=== PATIENT | female | born 1965 ===

== ENCOUNTER 2023-08-19 14:21 | Emergency (ER) | payer OTHER, SELFPAY ==
[2023-08-19] VITALS (7 sets, daily range): BP systolic 114–138; BP diastolic 67–89; PULSE 72–85; RESP 16–18; TEMP 36.4–36.9; O2SAT 93–98
--- NOTE | ~2023-08-19 | XR_ITS ---
EXAMINATION: XR knee RT 3V DATE: 08/19/2023 16:54 INDICATION: Right knee pain. TECHNIQUE: 3 views of right knee were obtained. COMPARISON: None. FINDINGS: Bone alignment is normal. No fracture. There is mild osteoarthritis of medial compartment c haracterized by tiny osteophytes. No knee joint effusion. IMPRESSION: 1. Mild right knee osteoarthritis. Reviewed, dictated and finalized at location E. K DRIER TENDER
--- NOTE | ~2023-08-19 | XR_ITS ---
EXAMINATION: XR knee LT 3V DATE: 08/19/2023 16:54 INDICATION: Left knee pain. TECHNIQUE: 3 views of left knee were obtained. COMPARISON: None. FINDINGS: Bone alignment is normal. No fracture. Joint spaces are normal. No knee joint effusion. IMPRESSION: 1. Normal left knee. Reviewed, dictated and finalized at location E. NISTRATIVE SUPPORT MANAGER IMPRESSION: 1. Normal left knee.
--- NOTE | 2023-08-19 16:37 | ED.GENADULT ---
HPI - General Adult General Chief complaint: Extremity Problem,Nontraumatic Stated complaint: bilateral knee pain Time Seen by Provider: 08/19/23 16:20 Source: patient Mode of arrival: ambulatory Limitations: no limitations History of Present Illness HPI narrative: This is a 58-year-old female who presents to the ED with chief complaint of acute on chronic bilateral knee pain. Reports the pain is primarily in the medial joint line of both knees. Reports pain radiates superiorly and inferiorly towards the hips and ankles. Describes the pain as feels like a saw slowing cutting through my leg. Reports she was diagnosed with fibromyalgia 2 weeks ago and started prednisone taper and is currently on Lyrica as well. Denies fevers, chills, numbness, weakness, back pain, chest pain, abdominal pain. Reports cardiac catheterization 2 days ago but has not had any lower leg swelling or edema. She is able to walk and bear weight. Related Data Allergies Allergy/AdvReac Type Severity Reaction Status Date / Time oxycodone [From Roxicet] Allergy Unknown Verified 08/19/23 16:46 Review of Systems Review of Systems: All systems as dictated in HPI Exam Narrative: GENERAL: Well-appearing, well-nourished, and in no acute distress. HEAD: Normocephalic, atraumatic. EYES: PERRLA and EOMI. ENT: Nares clear, no rhinorrhea or epistaxis. Mucous membranes moist. Oropharynx without tonsillar hypertrophy exudate or other lesions. NECK: Supple. No adenopathy or masses. CHEST: No respiratory distress. Clear to auscultation. No wheezes rales or rhonchi HEART: Regular rate and rhythm. No murmur heard. Normal peripheral pulses. ABDOMEN: Soft, nontender, nondistended, normal active bowel sounds. MSK: Mild tenderness to the bilateral medial knee joint lines. able to bear weight. Normal range of motion. No edema. No swelling, erythema or warmth. SKIN: Warm, dry, no rash. NEURO: Alert and oriented x3. No focal deficits. PSYCH: Normal mood and affect. Course Course Emergency Course: Re-evaluation: Patient received the Ativan. She feels ready to go home. She would like to follow up with her doctor. Vital Signs Vital signs: Vital Signs Pulse Rate 80 08/19/23 14:36 Respiratory Rate 18 08/19/23 14:36 Blood Pressure 134/89 08/19/23 14:36 Pulse Oximetry 96 08/19/23 14:36 Temperature 98.4 F 08/19/23 16:15 Pulse Rate 80 08/19/23 16:15 Respiratory Rate 18 08/19/23 16:15 Blood Pressure 138/80 08/19/23 16:15 Pulse Oximetry 95 08/19/23 16:15 Oxygen Delivery Room Air 08/19/23 14:42 Medical Decision Making MDM Narrative Medical decision making narrative: This is a 58-year-old female who presents to the ED with chief complaint of acute on chronic bilateral lower extremity pain. vitals are normal. Exam is overall benign. No significant edema, tenderness, knee effusion or skin change. No signs of inflammatory arthritis. No neurologic deficits. She has recent diagnosis fibromyalgia and is trying to optimize medications. Bilateral knee x-rays today show right knee OA and left knee is normal. Overall exam is consistent with more of a fibromyalgia picture. She was given Toradol here with minimal relief. Allergy to Adams. She was given 0.5 of Ativan with Moderate relief.. prescription will be written for another steroid taper for acute pain control. She already has prescription for Lyrica. Pt will be discharged in stable condition. Return precautions given and supportive measures discussed. Pt is understanding and agreeable with plan for discharge and follow-up with PCP. Vital Signs Vital Signs: Vital Signs Pulse Rate 80 08/19/23 14:36 Respiratory Rate 18 08/19/23 14:36 Blood Pressure 134/89 08/19/23 14:36 Pulse Oximetry 96 08/19/23 14:36 Temperature 98.4 F 08/19/23 16:15 Pulse Rate 80 08/19/23 16:15 Respiratory Rate 18 08/19/23 16:15 Blood Pressure
[2023-08-19] MEDS: ACETAMINOPHEN 325 MG TABLET 650 MG PO (16:44)
[2023-08-19] MEDS: KETOROLAC 30 MG/ML VIAL (*BKC) IM (17:17)
[2023-08-19] MEDS: LORazepam (*CRX) 0.5 MG TABLET PO (18:25)
== END 2023-08-19 18:49 | disposition home or self-care (01) ==
PROVIDERS: Emergency Provider Physician Assistant
DX: M25.562 Pain in left knee (principal); M25.561 Pain in right knee
CPT/HCPCS: 73562; 96372; 99284; A9270; J1885

== ENCOUNTER 2023-10-14 14:36 | Emergency (ER) | payer OTHER, SELFPAY ==
--- NOTE | ~2023-10-14 | CT_ITS ---
EXAMINATION: CT chest abdomen pelvis w con DATE: 10/14/2023 17:16 INDICATION: Abdominal distention. Shortness of breath. TECHNIQUE: Computed tomography (CT) of the chest, abdomen, and pelvis was performed with 100 mL Omnip aque 350 intravenous contrast. Automated exposure control and iterative reconstruction technique were employed. The dose-length product was 1434.79 mGy-cm. COMPARISON: None FINDINGS: CHEST CT: There is mild scarring at the lung apices. There is mild emphysema. There is smooth septal thickening in the lungs with groundglass opacities within an inferior lung predominance. No pleural effusion. T he heart size is normal. There are coronary artery calcifications. No pericardial effusion. There is mild thoracic spondylosis. ABDOMEN/PELVIS CT: The liver, gallbladder, spleen, pancreas, adrenal glands, and kidneys are normal. There are no dilate d loops of bowel. The appendix is not visualized. The bladder is distended. Aortic atherosclerosis is noted. There is no free intraperitoneal fluid. There are no pathologically enlarged lymph nodes. The re is mild lumbar spondylosis. IMPRESSION: 1. Mild emphysema. 2. Diffuse lung disease, which may be mild pulmonary edema or chronic interstitial lung disease in a pattern of nonspecific interstitial pneumonia (NSIP). Reviewed, dictated and finalized at location E. IMPRESSION: 1. Mild emphysema. 2. Diffuse lung disease, which may be mild pulmonary edema or chronic interstit ial lung disease in a pattern of nonspecific interstitial pneumonia (NSIP).
--- NOTE | ~2023-10-14 | XR_ITS ---
XR chest 2V DATE: 10/14/2023 16:10 INDICATION: Shortness of breath TECHNIQUE: PA and lateral views COMPARISON: None FINDINGS: There is mild pulmonary vascular prominence. There are bilateral Gadiel B lines which may i ndicate pulmonary interstitial edema; differential diagnosis includes pulmonary interstitial fibrosis . Mild bilateral apical capping. No pleural effusion is noted. Heart size is normal. Moderate bilateral hyperinflation. No pulmonary consolidation is noted. No hilar or mediastinal enlar gement. No pneumothorax. IMPRESSION: Bilateral Gadiel B lines and mild pulmonary vascular and pulmonary interstitial prominenc e similar differential diagnosis includes pulmonary interstitial edema and pulmonary interstitial fib rosis Moderate bilateral hyperinflation Reviewed, dictated and finalized at location A. IMPRESSION: Bilateral Gadiel B lines and mild pulmonary vascular and pulmonary interstitial prominence similar differential diagnosis includes pulmonary inter stitial edema and pulmonary interstitial fibrosis Moderate bilateral hyperinflation
[2023-10-14 14:42] VITALS: BP 139/88; PULSE 75; RESP 20; TEMP 36.4; O2SAT 98
[2023-10-14 15:39] VITALS: BP 115/76; PULSE 78; PULSE 79; RESP 16; O2SAT 99
[2023-10-14 15:41] VITALS: O2SAT 98
--- NOTE | 2023-10-14 15:42 | ECG_ITS ---
SEE SCANNED COPY FOR CONFIRMED REPORT MTDD
[2023-10-14 15:55] LABS: Basophils Absolute Auto 0.1 K/mm3 (0.0-0.1); Basophils Percent Auto 0.8 % (0.2-1.2); Eosinophils Absolute Auto 0.1 K/mm3 (0-0.3); Eosinophils Percent Auto 1.7 % (0-4.4); Hematocrit 43.2 % (37.0-47.0); Hemoglobin 14.4 g/dL (12.0-15.0); Immature Granulocyte Absolute 0.01 K/mm3 (0.00-0.031); Immature Granulocyte Percent A 0.2 % (0-0.5); Lymphocytes Absolute Auto 2.56 K/mm3 (0.9-3.2); Lymphocytes Percent Auto 39.4 % (18.3-44.2); Mean Corpuscular HGB Conc 33.3 g/dl (32-36); Mean Corpuscular Hemoglobin 32.4 pg (26-34); Mean Corpuscular Volume 97.1 fl (80-100); Mean Platelet Volume 10.4 fl (7.4-10.4); Monocytes Absolute Auto 0.4 K/mm3 (0.1-0.6); Monocytes Percent Auto 5.8 % (2.6-8.5); Neutrophils Absolute Auto 3.4 K/mm3 (1.3-6.7); Neutrophils Percent Auto 52.1 % (45.5-73.1); Platelet Count Result 178 k/mm3 (150-375); Red Blood Count 4.45 M/mm3 (4.2-5.4); Red Cell Distribution Width 12.4 % (11.5-14.5); White Blood Count 6.5 K/mm3 (4.5-10.0)
--- NOTE | 2023-10-14 15:55 | ED.WEAKNESS ---
HPI - Weakness General Chief complaint: Weakness Stated complaint: generalized swelling Time Seen by Provider: 10/14/23 15:55 Source: patient Mode of arrival: ambulatory Limitations: no limitations History of Present Illness HPI Narrative: 58 YEARS OLD WHITE FEMALE DROVE HERSELF TO THE EMERGENCY ROOM COMPLAINING OF SWOLLEN ABDOMEN AND FEET 4 WEEKS. PATIENT REPORT HAVING HISTORY OF COVID INFECTION 1 YEAR AGO AND HAS BEEN NOT FEELING WELL SINCE. WAS SEEN HER FAMILY PHYSICIAN 2 DAYS AGO, SCHEDULED FOR INTERMEDIATE ACCOUNTANT, SCHEDULED FOR GI, SCHEDULED FOR A LEFT KNEE STEROID INJECTION. PATIENT HAD CARDIAC CATHETERIZATION AUGUST 2023, 2 DAYS LATER CAME BACK TO THE EMERGENCY ROOM FOR POSSIBLE COMPLICATION OF THE CARDIAC CATHETERIZATION AND WAS DISCHARGED HOME AT THAT TIME. PLEASE LOOK AT THE OLD RECORD Related Data Allergies Allergy/AdvReac Type Severity Reaction Status Date / Time isosorbide Allergy Unknown Verified 10/14/23 15:35 oxycodone [From Roxicet] Allergy Unknown Verified 10/14/23 15:35 Review of Systems Review of Systems: All systems reviewed & are unremarkable except as noted in HPI and below Exam Narrative: GENERAL APPEARANCE: WELL-DEVELOPED, WELL-NOURISHED SKIN: NORMAL COLOR HEAD: NORMOCEPHALIC, NONTRAUMATIC EYES: CLEAR CONJUNCTIVA ENT: OROPHARYNX NORMAL, EARS NORMAL, NOSE NORMAL NECK: SUPPLE, NONTENDER CHEST AND RESPIRATORY: AIRWAY PATENT, NO RESPIRATORY DISTRESS, NO ACCESSORY MUSCLE USE HEART: REGULAR RATE/RHYTHM ABDOMEN: SOFT, NONTENDER, NO ORGANOMEGALY, QUIET BOWEL SOUNDS, DISTENDED VASCULAR: NORMAL PERIPHERAL PULSES, NORMAL CAPILLARY REFILL. MUSCULOSKELETAL: NORMAL RANGE OF MOTION, NONTENDER BACK NEUROLOGIC: ALERT AND ORIENTED ?3, SUPERVISOR POLE YARD IS NORMAL TESTED, NO GROSS MOTOR DEFICIT Course Vital Signs Vital signs: Vital Signs Temperature 36.4 C L 10/14/23 14:42 Pulse Rate 75 10/14/23 14:42 Respiratory Rate 20 10/14/23 14:42 Blood Pressure 139/88 10/14/23 14:42 Pulse Oximetry 98 10/14/23 14:42 Oxygen Delivery Room Air 10/14/23 14:42 Temperature 36.4 C L 10/14/23 14:42 Pulse Rate 81 10/14/23 18:36 Respiratory Rate 19 10/14/23 18:36 Blood Pressure 134/80 10/14/23 18:36 Pulse Oximetry 97 10/14/23 18:36 Oxygen Delivery Room Air 10/14/23 15:41 MDM - Weakness MDM Narrative Medical decision making narrative: PATIENT PRESENTS WITH MULTIPLE SYMPTOMS DIFFERENTIAL DIAGNOSIS INCLUDE ANXIETY, DEPRESSION, LONG COVID, ELECTROLYTE IMBALANCE, CHF, URINARY TRACT INFECTION, INTRA-ABDOMINAL PATHOLOGY. BLOOD WORKUP TODAY SHOWED NO SIGNIFICANT ABNORMALITY, CHEST X-RAY AND CT SCAN OF THE CHEST, ABDOMEN AND PELVIS SHOWED POSSIBLE PULMONARY EDEMA,/NORMAL BNP, INTERSTITIAL LUNG DISEASE. PATIENT DOES NOT HAVE ANY TROUBLE BREATHING OR CHEST PAIN. COMPLICATIONS SECONDARY TO COVID INFECTION IS A POSSIBILITY. Differential Diagnosis Differential diagnosis: Likely other ( ABOVE) Medical Records Attestation: I reviewed the patient's medical records. Lab Data Attestation: I reviewed the patient's lab results. 10/14/23 15:49 10/14/23 15:49 Labs: Lab Results 10/14/23 10/14/23 Range/Units 15:49 18:30 WBC 6.5 (4.5-10.0) K/mm3 RBC 4.45 (4.2-5.4) M/mm3 Hgb 14.4 (12.0-15.0) g/dL Hct 43.2 (37.0-47.0) % MCV 97.1 (80-100) fl MCH 32.4 (26-34) pg MCHC 33.3 (32-36) g/dl RDW 12.4 (11.5-14.5) % Plt Count 178 (150-375) k/mm3 MPV 10.4 (7.4-10.4) fl Immature Gran % (Auto) 0.2 (0-0.5) % Neut % (Auto) 52.1 (45.5-73.1) % Lymph % (Auto) 39.4 (18.3-44.2) % Baxter % (Auto) 5.8 (2.6-8.5) % Eos % (Auto) 1.7 (0-4.4) % Baso % (Auto) 0.8
[2023-10-14 16:06] LABS: Alanine Aminotransferase 18 U/L (6-35); Alkaline Phosphatase 103 U/L (38-126); Anion Gap 6 mmol/L (4-12); Aspartate Amino Transferase 22 U/L (14-36); Bilirubin,Total 0.5 mg/dL (0.2-1.3); Blood Urea Nitrogen 8 mg/dL (7-17); Carbon Dioxide 25 mmol/L (22-30); Chloride 110 mmol/L (98-107); Estimated CRCL calculation 94 ml/min; Estimated Glomerular Filt Rate > 60; Glucose 107 mg/dL (65-110); Potassium 3.5 mmol/L (3.4-5.0); Sodium 141 mmol/L (137-145)
[2023-10-14 16:14] LABS: Prothrombin Time 13.4 Seconds (11.1-14.7)
[2023-10-14 16:15] LABS: Partial Thromboplastin Time 29.2 Seconds (22.3-36.8)
[2023-10-14 16:23] LABS: NT Pro B Type Natriuretic Pept 81 pg/mL (19.9-100); Troponin I < 0.012 ng/mL (0.000-0.034)
[2023-10-14 16:36] LABS: Alveolar/Arterial O2 Gradient 38.1 mmHg; Base Excess ABG 0.8 mEq/l (+/-2.0); Fractional Inspired Oxygen 21 %; HCO3 ABG 23.7 mEq/l (22.0-26.0); Oxygen Content ABG 17.8 %vol (16.0-22.0); Oxygen Saturation ABG 95.6 % (95.0-100.0); PO2 ABG 72.1 mmHg (80.0-100.0); PO2 FiO2 Ratio Arterial Blood 3.43 %; Total Hemoglobin 14.8 g/dL (12.0-18.0); pH ABG 7.474 (7.350-7.450)
[2023-10-14 16:38] LABS: Device ROOM AIR; Modified Allen's Test Pass; Oxyhemoglobin 85.2 % THb (90.0-100.0); Site Drawn LEFT RADIAL
[2023-10-14 18:36] VITALS: BP 134/80; PULSE 81; RESP 19; O2SAT 97
[2023-10-14 18:40] LABS: Appearance Urine Clear (Clear); Bilirubin Urine Negative (Negative); Blood Urine Negative (Negative); Color Urine Yellow (Yellow); Glucose Urine UA Negative (Negative); Ketones Urine Negative (Negative); Leukocyte Esterase Ur Negative LEU/UL (Negative); Nitrate Urine Negative (Negative); Protein Urine Negative (Negative); Specific Grav Ur 1.066 (1.001-1.035); Urobilinogen Urine 0.2 mg/dL (<2.0); pH Urine 5.5 (5.0-9.0)
[2023-10-14 18:41] LABS: Add Urine Microscopic? NO
[2023-10-14 19:10] VITALS: BP 122/77; PULSE 92; RESP 23; TEMP 36.4; O2SAT 97
== END 2023-10-14 19:21 | disposition home or self-care (01) ==
PROVIDERS: Emergency Provider Emergency Medicine; PCP Internal Medicine
DX: R53.1 Weakness (principal); J84.9 Interstitial pulmonary disease, unspecified; Z86.16 Personal history of COVID-19
CPT/HCPCS: 36415; 36600; 71046; 71260; 74177; 80053; 81003; 82805; 83735; 83880; 84484; 85025; 85610; 85730; 93005; 99284; Q9967

== ENCOUNTER 2024-05-07 12:51 | Outpatient (CLI) | payer OTHER, SELFPAY ==
--- NOTE | 2024-05-07 14:00 | NEURO_ITS ---
Impression: # Complains of left foot turning in while walking. 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 # Abnormal Needle/EMG exam. # Findings suggestive of left peroneal nerve dysfunction above the fibular head. Nerve Conduction Studies Anti Sensory Summary Table Stim Site NR Peak (ms) P-T Amp (?V) Site1 Site2 Delta-P (ms) Dist (cm) Yvan (m/s) Left Sup Fibular Anti Sensory (Ant Lat Mall) 14 cm 3.4 16.5 14 cm Ant Lat Mall 3.4 16.0 47 Left Sural Anti Sensory (Lat Mall) Calf 3.8 10.6 Calf Lat Mall 3.8 16.0 42 Motor Summary Table Stim Site NR Onset (ms) O-P Amp (mV) Site1 Site2 Delta-0 (ms) Dist (cm) Yvan (m/s) Left Peroneal Motor (Vastus Med) Ankle 3.8 0.9 Popit Ankle 8.2 39.0 48 Popit 12.0 0.6 B Fib Ankle 5.9 31.0 53 B Fib 9.7 0.6 Left Tibial Motor (Abd Zarate Brev) Ankle 4.0 6.7 Knee Ankle 8.7 40.0 46 Knee 12.7 2.5 F Wave Studies NR F-Lat (ms) L-R F-Lat (ms) Left Peroneal (Mrkrs) (EDB) 53.10 Left Tibial (Mrkrs) (Abd Hallucis) 53.71 EMG Side Muscle Nerve Root Ins Act Fibs Amp Dur Recrt Comment Left AntTibialis Dp Br Fibular L4-5 Nml Nml Nml Nml Nml Left Gastroc Tibial S1-2 Nml Nml Nml Nml Nml Left Fibularis Long Sup Br Fibular L5-S1 Nml Nml Nml Nml Nml Left Flex Dig Long Tibial L5-S2 Nml Nml Nml Nml Nml Left Ext Dig Brev Dp Br Fibular L5, S1 Nml Nml Decr >12ms +2 Left QuadratusFem QuadFemoris L4-5, S1 Nml Nml Nml Nml Nml MTDD
== END 2024-05-07 12:52 | disposition home or self-care (01) ==
LOC: ANHNEURO 12:52
PROVIDERS: PCP Internal Medicine; Visit Provider Podiatrist Foot & Ankle Surgery
DX: M21.6X2 Other acquired deformities of left foot (principal); G57.30 Lesion of lateral popliteal nerve, unspecified lower limb
CPT/HCPCS: 95886; 95908

== ENCOUNTER 2024-07-24 04:58 | Emergency (ER) | payer OTHER, SELFPAY ==
--- NOTE | ~2024-07-24 | XR_ITS ---
EXAMINATION: XR chest 1V portable DATE: 07/24/2024 12:16 INDICATION: Shortness of breath TECHNIQUE: AP view of the chest was obtained. COMPARISON: Chest radiograph and CT dated 10/14/2023 FINDINGS: Again seen is a mild increased interstitial pattern in the bilateral lower lung zones which could rep resent mild pulmonary edema or chronic interstitial lung disease.. No pleural effusion or pneumothora x. The cardiomediastinal silhouette is normal. Visualized bones and soft tissues are unremarkable. IMPRESSION: 1. Mild increased interstitial pattern in the bilateral lower lungs due to mild pulmonary edema or ch ronic interstitial lung disease. Reviewed, dictated and finalized at location A. STMENT ANALYST IMPRESSION: 1. Mild increased interstitial pattern in the bilateral lower lungs due to mild pulmonary edema or chronic interstitial lung disease.
--- OUTSIDE RECORDS SUMMARY | 2024-07-24 05:01 | XMS_ITS | Referral Summary ---
Author Organization [facility] [place] [address] Address [address] [place] [address] Care Team Providers Care Drinking Water Technician Name Role Phone Renato Rdz MD Primary Care Provider +1- [phone] Encounters Date Type Department Care Team Description 07/12/2024 Telephone [facility] Gastroenterology at [address] [place] [address] Amalia Little LPN 07/04/2024 Orders Only [facility] [address] [facility] 8th [place] [address] [place] [address] Surjit Up MD 06/29/2024 Orders Only [facility] [address] [facility] 8th [place] [address] [place] [address] Surjit Up MD 06/29/2024 1:30 PM MANAGER RISK MANAGEMENT - 06/29/2024 11:59 PM MANAGER RISK MANAGEMENT Hospital Encounter [facility] [address] [place] [address] Surjit Up MD ILD (interstitial lung disease) (CMS/HCC) (HCC) Discharge Disposition: Discharge to home or self care 06/29/2024 3:00 PM MANAGER RISK MANAGEMENT Office Visit [facility] [address] [facility] 8th [place] [address] [place] [address] Surjit Up MD Coronary artery calcification seen on CT scan (Primary Dx); Major depressive disorder in partial remission, unspecified whether recurrent (HCC); Tobacco abuse; Chronic fatigue; Other emphysema (HCC) from Last 3 Months Allergies Active Allergy Reactions Criticality Noted Date Comments Isosorbide Mononitrate Headache Low 07/12/2023 Severe/migraines Oxycodone-Acetaminophen Unknown 04/06/2023 Medications aspirin (Adult Low Dose Aspirin) 81 mg enteric coated tablet Take 1 tablet (81 mg total) by mouth daily 3 Active atorvastatin (LIPITOR) 40 mg tablet Take 1 tablet (40 mg total) by mouth daily 30 tablet 11 3 Active albuterol HFA (PROVENTIL HFA,VENTOLIN HFA,PROAIR HFA) 90 mcg/actuation inhaler Inhale 2 puffs every 4 (four) hours as needed for wheezing Active ibuprofen (ADVIL,MOTRIN) 600 mg tablet TAKE 1 TABLET 3 TIMES A DAY BY MOUTH WITH MEALS FOR 30 DAYS. 4 Active pregabalin (LYRICA) 50 mg capsule Take 1 capsule (50 mg total) by mouth daily Active buPROPion XL (WELLBUTRIN XL) 300 mg 24 hr tablet Take 1 tablet (300 mg total) by mouth daily Active OneTouch Verio test strips strip USE 1 STRIP EVERY DAY NEEDED FOR 100 DA[address] (CYMBALTA) 30 mg capsule TAKE 1 CAPSULE BY MOUTH AT BEDTIME TAKE WITH 60MG TO EQUAL 90MG DAILY Active metFORMIN XR (GLUCOPHAGE XR) 500 mg 24 hr tablet TAKE 1 TABLET BY MOUTH EVERY DAY AT DINNER FOR 30 DAYS Active ofloxacin (OCUFLOX) 0.3 % ophthalmic solution PLEASE SEE ATTACHED FOR DETAILED DIRECTIONS Active ascorbic acid with alejandra hips 500 mg tablet Take 1 tablet/chew tab (500 mg total) by mouth daily 4 Active cholecalcifero l (VITAMIN D-3) 50,000 unit capsule Take 1 capsule (50,000 Units total) by mouth once a week 4 Active ferrous sulfate 325 mg (65 mg of elemental iron) tablet Take 1 tablet (325 mg total) by mouth daily 4 Active OneTouch Delica Plus Lancet 33 gauge misc USE TO TEST BLOOD GLUCOSE ONCE DAILY 4 Active fluticasone-um eclidin-vilant er (TRELEGY ELLIPTA) 100-62.5-25 mcg inhaler Inhale 1 puff daily 3 each 4 5 Active budesonide-for moteroL (SYMBICORT) 160-4.5 mcg/actuation inhaler Inhale 2 puffs 2 (two) times a day Rinse mouth with water after use. Do not swallow. 1 each 11 5 Active aclidinium (TUDORZA) 400 mcg/actuation inhaler Inhale 1 puff 2 (two) times a day 1 each 11 5 Active budesonide-gly copyr-formoter ol (Breztri Aerosphere) 160-9-4.8 mcg/actuation inhaler Inhale 2 puffs 2 (two) times a day 1 each 5 Active budesonide-gly copyr-formoter ol (Breztri Aerosphere) 160-9-4.8 mcg/actuation inhaler Inhale 2 puffs 2 (two) times a day 1 each 5 Active fluticasone-um eclidin-vilant er (TRELEGY ELLIPTA) 100-62.5-25 mcg inhaler Inhale 1 puff daily 3 each 4 4 06/29/19 25 Discontinu ed(Reorder ) Active Problems Problem Noted Date Diagnosed Date Gastroesophageal reflux disease 07/12/2024 Screening for colon cancer 07/12/2024 Other emphysema 2024 Special screening for malignant neoplasms, colon 11/29/2023 Palpitations 10/31/2023 Fibromyalgia 08/23/2023 Myalgia 08/23/2023 Abnormal stress test 05/31/2023 LOVETT (dyspnea on exertion) 05/31/2023 Angina pectoris, unspecified 05/31/2023 Coronary artery calcification seen on CT scan Depression 04/06/2023 Tobacco abuse 04/06/2023 Mixed hyperlipidemia 04/06/2023 Chronic fatigue 04/06/2023 Social History Tobacco Use Types Packs/Day Years Used Date Smoking Tobacco: Every Day Cigarettes 2 35 Smokeless Tobacco: Never Tobacco Cessation:Ready to Q uit: Not Asked; Counseling Given: Not Answered AUDIT-C Answer Date Recorded Q1: How often do you have a drink containing alcohol? Never 08/17/2023 Q2: How many drinks containi ng alcohol do you have on a typical day when you are drinking? Patient does not drink Q3: How often do you have si x or more drinks on one occasion? Never 08/17/2023 Hunger Vital Sign Answer Date Recorded Within the past 12 months, y ou worried that your food would run out before you got the money to buy more. Patient declined Within the past 12 months, t he food you bought just didn't last and you didn't have money to get more. Patient declined 06/2023 Personal Safety Answer Date Recorded Have you ever been in or are you currently in a harmful physical or emotional relationship or is someone making you feel afraid or unsafe? Denies 08/17/2023 Comments No Sex and Gender Information Value Date Recorded Sex Assigned at Not on file Legal Sex Female 9:28 AM CDT Gender Identity Female 04/12/2023 10:51 PM CDT Sexual Orientation Not on file Last Filed Vital Signs Vital Sign Reading Time Taken Comments Blood Pressure 128/76 06/29/2024 2:30 PM MANAGER RISK MANAGEMENT Pulse 78 06/29/2024 2:30 PM MANAGER RISK MANAGEMENT Temperature 36.7 C (98.1 F) 06/29/2024 2:30 PM MANAGER RISK MANAGEMENT Respiratory Rate 16 06/29/2024 2:30 PM MANAGER RISK MANAGEMENT Oxygen Saturation 97% 06/29/2024 2:30 PM MANAGER RISK MANAGEMENT Inhaled Oxygen Concentration - - Weight 85.5 kg (188 lb 6.4 oz) 06/29/2024 2:30 P M MANAGER RISK MANAGEMENT Height 162.6 cm (5' 4 ) 06/29/2024 2:30 PM MANAGER RISK MANAGEMENT Body Mass Index 32.34 06/29/2024 2:30 PM MANAGER RISK MANAGEMENT Plan of Treatment Upcoming Encounters Date Type Department Care Team (Latest Contact Info) Description 02/26/2025 8:00 AM CDT Hospital Encounter [facility] 1 [place] [address] Connor Arias DO [address] [place] [address] [place] [address] 02/26/2025 8:00 AM CDT - 02/26/2025 8:40 AM CDT Surgery [facility] 1 [place] [address] Connor Arias, DO [address] [facility] [place] [address] ESOPHAGOGASTRODUODENOSCOPY Scheduled Procedures Name Priority Associated Diagnoses Date/Ti me ESOPHAGOGASTRODUODENOSCOPY Gastroesophageal reflux disease, unspecified whether esophagitis present Screening for colon cancer 02/26/2025 8:00 AM CDT COLONOSCOPY Gastroesophageal reflux disease, unspecified whether esophagitis present Screening for colon cancer 02/26/2025 8:00 AM CDT Medical Devices Implanted Type Area Quencher Operator Device Identifier Shelf Expiration Date Model / Serial / Lot Noom Device Closure Vascade Od5 Fr Femoral Artery [id number] - [id number] Implanted:Qty: 1 on 08/17/2023 by Kd Morton MD at [facility] [employer] 04/26/2025 [id number] / / [id number] Procedures Procedure Name Priority Date/Time Associated Diagnosis Comments CT CHEST WO CONTRAST Schedule Routine, Read Routine (OP Routine) 06/29/2024 2:05 PM MANAGER RISK MANAGEMENT ILD (interstitial lung disease) (CMS/HCC) (HCC) HIGH RISK HPV DNA DETECTION WITH GENOTYPING Routine 12/12/2023 4:38 PM CDT Unspecified urinary incontinence from Last 3 Months or Most Recently Relevant to Health Maintenance Results * CT Chest WO Contrast (06/29/2024 2:05 PM MANAGER RISK MANAGEMENT) Anatomical Region Laterality Modality Body N/A Computed Tomogra phy 06/29/2024 2:20 PM MANAGER RISK MANAGEMENT Impressions 06/29/2024 2:20 PM MANAGER RISK MANAGEMENT 1. Stable pulmonary nodules measuring up to 8mm. 1 year follow-up is recommended. 2. Paraseptal emphysema with mosaic attenuation of the lung parenchyma suggestive of small airway disease. Electronically signed by: Fabio Vargas M.D. Narrative 06/29/2024 2:20 PM MANAGER RISK MANAGEMENT EXAMINATION: Computed tomography of the chest and pelvis without intravenous contrast HISTORY: Subcentimeter pulmonary lung nodules. TECHNIQUE: Transaxial computed tomographic images of the chest and pelvis were obtained without intravenous contrast according to the standard protocol. COMPARISON: 10/14/2023 FINDINGS: There is no axillary, supraclavicular, mediastinal or hilar enlarged lymph node. The heart is normal. There is no pericardial effusion. Atherosclerotic aspiration of the coronary arteries are seen. Thoracic aorta is normal in caliber with scattered atherosclerotic calcifications. There is paraseptal emphysema. Predominantly lower lobe metastatic attenuation are unchanged. There is no pleural effusion or pneumothorax. An 8 mm nodule in the left lower lung is unchanged (series 3 image 112). Liv-fissural 6 cm nodule in the left upper lobe is also unchanged (series 3 image 35), likely a lymph node. A 6 mm Liv-fissural nodule in the right (series 3 image 85) also unchanged. There is no acute process in the imaged portion of upper abdomen. Procedure Note Fabio Dominguez MD - 06/29/2024 EXAMINATION: Computed tomography of the chest and pelvis without intravenous contrast HISTORY: Subcentimeter pulmonary lung nodules. TECHNIQUE: Transaxial computed tomographic images of the chest and pelvis were obtained without intravenous contrast according to the standard protocol. COMPARISON: 10/14/2023 FINDINGS: There is no axillary, supraclavicular, mediastinal or hilar enlarged lymph node. The heart is normal. There is no pericardial effusion. Atherosclerotic aspiration of the coronary arteries are seen. Thoracic aorta is normal in caliber with scattered atherosclerotic calcifications. There is paraseptal emphysema. Predominantly lower lobe metastatic attenuation are unchanged. There is no pleural effusion or pneumothorax. An 8 mm nodule in the left lower lung is unchanged (series 3 image 112). Liv-fissural 6 cm nodule in the left upper lobe is also unchanged (series 3 image 35), likely a lymph node. A 6 mm Liv-fissural nodule in the right (series 3 image 85) also unchanged. There is no acute process in the imaged portion of upper abdomen. IMPRESSION: 1. Stable pulmonary nodules measuring up to 8mm. 1 year follow-up is recommended. 2. Paraseptal emphysema with mosaic attenuation of the lung parenchyma suggestive of small airway disease. Electronically signed by: Fabio Vargas M.D. Surjit Kohler MD IMG CT PROCEDURES F inal Result * High Risk HPV DNA Detection with Genotyping (Molecular component) (12/12/2023 4:38 PM CDT) HPV HR 16 Not Detected Not Detected [facility] HPV HR 18 Not Detected Not Detected [facility] HPV HR Non 16/18 Not Detected Not Detected [facility] Comment: Interpretive Data Nucleic acid amplification for detection of high-risk Human Papilloma virus (HPV) is performed by the Kevin Nicholas 6800 HPV test. This assay specifically detects HPV-16 and HPV-18 genotypes. The following HPV genotypes are detected as high-risk HPV: HPV-31, 33, 35, ,39, 45, 51, 52, 56, 58, 59, 66, and 68. This assay has been approved by the [place] Food and Drug Administration for detection of HPV in cervical specimens collected by a physician using an endocervical brush/spatula or cervical broom and placed in the ThinPrep Pap Test PreservCyt collection containers. The performance characteristics of this test have been verified by the [facility] Molecular Infectious Disease laboratory. Correlate with separately reported cytology results, as applicable. Interpretive data last revised 22 Endocervical 12/12/2023 4:38 PM CDT 12/13/2023 10:39 AM CDT Narrative [facility] - 12/13/2023 7:28 PM CDT Clinical history and diagnosis->last pap 11 years ago Testing type->Screening Last menstrual period (date if known)->- Menstrual status->Postmenopausal Isadora Aguirre MD LAB BODY FLUIDS AND STOOL S ORDERABLES Final Result [facility] [place] [address] [facility] from Last 3 Months or Most Recently Relevant to Health Maintenance Insurance [facility] Advance Directives For more information, please contact: [phone] * Full Code (Latest Code Status on File) Date Activated Date Inactivated Comments 08/17/2023 9:09 AM 08/17/2023 3:52 PM Care Teams Drinking Water Technician Relationship Specialty Start Date End Date Renato Rdz MD [address] [place] [address] [address] [place] [id number] PCP - General Family Medicine 04/13/23
--- OUTSIDE RECORDS SUMMARY | 2024-07-24 05:01 | XMS_ITS | Clinical Summary ---
Author Organization [facility] [place] [address] Address [address] [place] [address] Care Team Providers Care Acid Mixer Name Role Phone Renato Rdz MD Primary Care Provider +1- [phone] Allergies Active Allergy Reactions Criticality Noted Date [...] 04/06/2023 Mixed hyperlipidemia 04/06/2023 Chronic fatigue 04/06/2023 Encounters Date Type Department Care Team Description 07/12/2024 Telephone [facility] Gastroenterology at [address] [place] [address] Amalia Little LPN 07/04/2024 Orders Only [facility] [address] [place] [address] Medicine 8th [place] [address] [place] [address] Surjit Up MD 06/29/2024 3:00 PM ASSEMBLY HAND Office Visit [facility] [address] [place] [address] 8th [place] [address] [place] [address] Surjit Up MD Coronary artery calcification seen on CT scan (Primary Dx); Major depressive disorder in partial remission, unspecified whether recurrent (HCC); Tobacco abuse; Chronic fatigue; Other emphysema (HCC) 06/29/2024 1:30 PM ASSEMBLY HAND - 06/29/2024 11:59 PM ASSEMBLY HAND Hospital Encounter [facility] [address] [place] [address] Surjit Up MD ILD (interstitial lung disease) (CMS/HCC) (HCC) Discharge Disposition: Discharge to home or self care 06/29/2024 Orders Only [facility] Pending sale to [facility] Medicine 8th [place] [address] [place] [address] Surjit Up MD from Last 3 Months Surgical History Surgery Date Site/Laterality Comments VEIN SURGERY SECTION APPENDECTOMY Medical History Medical History Date Comments Coronary artery disease Shortness of breath Cardiomyopathy (HCC) Asthma GERD (gastroesophageal reflux disease) Anxiety Cancer (CMS/HCC) (HCC) Emphysema of lung (HCC) Migraines Family History Medical History Relation Name Comments Ulcers Father Cervical cancer Mother Dementia Mother Relation Name Status Comments Father Mother Social History Tobacco Use Types Packs/Day Years [...] PM CDT Sexual Orientation Not on file Obstetrics History Last Filed Vital Signs Vital Sign Reading Time Taken Comments Blood Pressure 128/76 06/29/2024 2:30 PM ASSEMBLY HAND Pulse 78 06/29/2024 2:30 PM ASSEMBLY HAND Temperature 36.7 C (98.1 F) 06/29/2024 2:30 PM ASSEMBLY HAND Respiratory Rate 16 06/29/2024 2:30 PM ASSEMBLY HAND Oxygen Saturation 97% 06/29/2024 2:30 PM ASSEMBLY HAND Inhaled Oxygen Concentration - - Weight 85.5 kg (188 lb 6.4 oz) 06/29/2024 2:30 P M ASSEMBLY HAND Height 162.6 cm (5' 4 ) 06/29/2024 2:30 PM ASSEMBLY HAND Body Mass Index 32.34 06/29/2024 2:30 PM ASSEMBLY HAND Plan of Treatment Upcoming Encounters Date Type Department Care Team (Latest Contact Info) Description 02/26/2025 8:00 AM CDT Hospital Encounter [facility] 1 [place] [address] Connor Arias, [address] [facility] [address] [place] [address] 02/26/2025 8:00 AM CDT - 02/26/2025 8:40 AM CDT Surgery [address] [address] Connor Arias, [address] [facility] [address] [place] [address] ESOPHAGOGASTRODUODENOSCOPY Scheduled Procedures Name Priority Associated Diagnoses Date/Ti me ESOPHAGOGASTRODUODENOSCOPY Gastroesophageal reflux disease, unspecified whether esophagitis present Screening for colon cancer 02/26/2025 8:00 AM CDT COLONOSCOPY Gastroesophageal reflux disease, unspecified whether esophagitis present Screening for colon cancer 02/26/2025 8:00 AM CDT Health Maintenance Due Date Last Done Comments Breast Cancer Screening-Mammogram 1966 Colon Cancer Screening-Colonoscopy 1966 Depression Screening 1966 Hepatitis C Screening 1966 Pneumococcal vaccine <65 (1 of 2 - PCV) 1972 DTaP/Tdap/Td Vaccine (1 - Tdap) 1977 Hepatitis B Screening 1984 Regular Well Visit/Exam 18-64 1984 Lung Cancer Screening 2016 Zoster Vaccine (1 of 2) 2016 Covid-19 Vaccine ( season) 2024 07/13/2021, 09/16/2020, 08/25/2020 Influenza Vaccine (#1) 2024 04/21/2023, 2021 Cervical Cancer Screening 12/11/2024 12/12/2023, 06/2023 Medical Devices Implanted Type Area Kier Boiler Device Identifier Shelf Expiration Date Model / Serial / Lot [employer] Device Closure Vascade Od5 Fr Femoral Artery [id number] - [id number] Implanted:Qty: 1 on 08/17/2023 by Kd Morton MD at [facility] 04/26/2025 [id number] / / [id number] Procedures Procedure Name Priority Date/Time Associated Diagnosis Comments CT CHEST WO CONTRAST Schedule Routine, Read Routine (OP Routine) 06/29/2024 2:05 PM ASSEMBLY HAND ILD (interstitial lung disease) (CMS/HCC) (HCC) HIGH RISK HPV DNA DETECTION WITH GENOTYPING Routine 12/12/2023 4:38 PM CDT Unspecified urinary incontinence from Last 3 Months or Most Recently Relevant to Health Maintenance Results * CT Chest WO Contrast (06/29/2024 2:05 PM ASSEMBLY HAND) Anatomical Region Laterality Modality Body N/A Computed Tomogra phy 06/29/2024 2:20 PM ASSEMBLY HAND Impressions 06/29/2024 2:20 PM ASSEMBLY HAND 1. Stable pulmonary nodules measuring up to 8mm. 1 year follow-up is recommended. 2. Paraseptal emphysema with mosaic attenuation of the lung parenchyma suggestive of small airway disease. Electronically signed by: Fabio Vargas M.D. Narrative 06/29/2024 2:20 PM ASSEMBLY HAND EXAMINATION: Computed tomography of the chest and [...] by: Fabio Vargas M.D. Surjit Kohler MD [facility] CT PROCEDURES F inal Result * High Risk HPV DNA Detection with Genotyping (Molecular component) (12/12/2023 4:38 PM CDT) Pathologist [facility] HPV HR 16 Not Detected Not Detected [facility] HPV HR 18 Not Detected Not Detected [facility] HPV HR Non 16/18 Not Detected Not Detected [facility] Comment: Interpretive Data Nucleic acid [...] this test have been verified by the [facility] Molecular Infectious Disease laboratory. Correlate with separately reported cytology results, as applicable. Interpretive data last revised 22 Endocervical 12/12/2023 4:38 PM CDT 12/13/2023 10:39 AM CDT Narrative [facility] - 12/13/2023 7:28 PM CDT Clinical history and diagnosis->last pap 11 years ago Testing type->Screening Last menstrual period (date if known)->- Menstrual status->Postmenopausal Isadora Aguirre MD LAB BODY FLUIDS AND STOOL S ORDERABLES Final Result [facility] Department [place] [address] [facility] from Last 3 Months or Most Recently Relevant to Health Maintenance Insurance [facility] [employer] BETTER [facility] [place] Advance Directives For more information, please contact: [phone] * Full Code (Latest Code Status on File) Date Activated Date Inactivated Comments 08/17/2023 9:09 AM 08/17/2023 3:52 PM Care Teams Acid Mixer Relationship Specialty Start Date End Date Renato Rdz MD [facility] [place] [address] PCP - General Family Medicine 04/13/23
--- OUTSIDE RECORDS SUMMARY | 2024-07-24 05:02 | XMS_ITS | Data Portability ---
Author Organization MD - [facility] [employer], Main Office Address [address] [place] [address] Care Team Providers Care Pinsetter Mechanic Helper Name Role Phone SHELTON GLASGOW Primary Care Provider [phone] SHELTON GLASGOW Referring Provider DODIE DANIELS Orthopedic Surgeon [phone] LEFTY TERRELL Director Of Student Financial Aid JENNY HARDIN Senior Mainframe Programmer Analyst AMADEO SMITH Psychiatrist ALHAJI WILLS Digital Composer [facility] CARD[facility] Commercial Green Retrofit Architect [facility] Pain Management Assessment Encounter Date Assessment Date Assessment LastModified by Organization Details LastModified Time 04/09/2024 04/09/2024 This note is dictated and transcribed by [employer]. Shale Processing Technician variances may occur. Despite proofreading, typographical errors may occur. Occasional wrong-word or 'naema-s-ruao' substitutions may have occurred due to the inherent limitations of voice recording. Read the chart carefully and recognize, using context, where substitutions have occurred. Not available 04/09/2024 15:59:36 04/10/2024 04/10/2024 Assessment: Nicotine smoke: 2 ppd 1995-present = 56 pack years RBILD VS NSIP 8 mm LLL nodule Mild OSAHS, AHI = 2 PLMD Iron deficiency Plan: The following were reviewed and explained to the patient: Chest CT 12/17/22 emphysema, 8 mm LLL nodule, bibasilar GGO Chest CT 04/08/23 emphysema, no nodule, lung bases mosaic attenuation Chest CT 10/14/23 emphysema, diffuse GGO 2-D echocardiogram 04/13/23 EF 65% Lab data 12/05/23 (+) nucleolar ANGELIQUE 1:80 [facility] diagnostic sleep study 02/28/24 sleep onset = 16.5 minutes, REM onset = 282.5 minutes, AHI = 2, REM AHI = 9, PLMI = 12 Ferritin 03/01/24 66 ng/mL Hct 03/01/24 48.3% Nicotine cessation counseling provided. [place] for quitting nicotine include getting ready, getting support and encouragement, learning new skills and behaviors and being prepared to handle slips. Tips for dealing with cravings provided. Prevention of subsequent illnesses from nicotine addiction discussed. Comorbidities include but are not limited to hypertension, cerebrovascular disease, coronary heart disease, congestive heart failure, hyperlipidemia, COPD/asthma, peptic ulcer disease, esophagitis/gastri tis, and osteoporosis. Therapy options offered include: Quitting by total abstinence Receiving nicotine replacement therapy Undergoing hypnosis Filling a bupropion or varenicline prescription Enrolling in Quit For Life program Registering at [email or web address] Making a call to 8-856-WQXN-NOW ( ). A strong, clear, personalized message was given to the patient to quit smoking. The patient was urged to set a quit date. We discussed patient's barriers to quitting and I will be of assistance when patient is ready to quit. I encouraged patient to inform friends and family of plans to quit with a request for support. I encouraged the patient to remove all cigarettes from the environment. We reviewed any previous quit attempts and lessons learned from them. I encouraged total abstinence from smoking and advised the patient that drinking alcohol and/or associating with other smokers are associated with failure or relapse. Patient can enroll in [facility]'s smoking cessation class through Kamini Sood RN at . Enrollment is free and classes are held every second Tuesday of the month from 1:30 pm to 2:30 pm at the conference room next to the cafeteria on the ground floor. Follow up with Dr. Surjit Kohler at [phone], option #1 at the [facility] building on the 8th floor, [address], in the [facility] for follow up in 06/29/[address] scan to follow up on the pulmonary nodule. Continue Albuterol HFA as needed only. The patient does not know how to accurately administer the inhaler. Today, the patient was shown how to take this medication. The proper technique for delivering this medication was instructed. The patient expressed a clear understanding and demonstrated back how to use this medication. Without the proper technique, the patient will not reap the benefits of the treatment as the contents of the inhaler will not reach the lower airways as intended to be. Adherence to therapy is advocated. Nonadherence may lead to treatment failure, further progression of the condition, and other complications. Hospitals admissions are often the result of individuals not taking prescription medications accurately. Alternatively, greater adherence to medication regimens have shown to lower rates of hospitalization and decrease total medical costs in patients with chronic medical conditions. Elevation in periodic limb movement index may be contributed by duloxetine and nicotine gum. Non-pharmacologic therapy options for periodic limb movement disorder include avoidance of aggravating drugs and substances, mental alerting activities, short daily hemodialysis for patients in renal failure, exercise, leg massage, stretching calf muscles, use of a weighted blanket and applied heat. Patient will cut down on nicotine use and caffeine intake. BUN, Creatinine, Vitamin E, Vitamin B12, RBC folate, Iron, TIBC, ESR, Magnesium and Hgb are within normal limits. Patient will take FeSO4 325 mg + Vit C 500 mg daily to keep the ferritin > 75 ng/ml. We will hold off on dopaminergic therapy for now. General information on sleep disordered breathing and evaluation of sleep disordered breathing were covered. We discussed with the patient the impact of weight on: Sleep disordered breathing Hyperlipidemia DM CAD OK Urge urinary incontinence Lumbar spondylosis We discussed with the patient the benefit of PAP therapy on: Sleep disordered breathing Anxiety/Depression DM OK Urge urinary incontinence Educated the patient on sleep hygiene measures. Relaxing rituals to rest easy, understanding foods with positive and negative impact on sleep, creating a peaceful sleep environment, timing of exercise, using herbal sleep aids, and practicing sleep-friendly meditation were covered. To determine how much sleep is needed, the patient will assess where she falls on the spectrum, examine what lifestyle factors such as work schedules and stress are affecting the quality and quantity of sleep. In general, adults need 7-9 hours of sleep. Educated the patient regarding foods that promote sleep. These include but are not limited to cherries, bananas, toast, oatmeal, and warm milk. Educated the patient regarding foods and drinks to avoid before bedtime. These include but are not limited to aged cheese, chocolate, spicy foods, tomato-based sauces, soy, ginseng tea and processed meat. Advocated influenza vaccination annually and pneumonia vaccination CHRISTINA. Advocated weight loss through diet and exercise. Patient's ideal body weight according to height and gender is up to 130 lbs. Encouraged patient to adjust caloric intake to maintain/achieve ideal body weight, emphasizing on fruits, vegetables, whole grains, and fat-free or low-fat products. These include lean meats, poultry, fish, beans, eggs, and nuts and foods that are low in saturated fats, trans-fats, cholesterol, salt (sodium), and glycemic index. Stressed the importance of regular exercise up to the patient's capacity limits. In this case, we recommend 20 min daily walking, 2 days a week of resistance training. Patient to monitor BP daily and bring records to PCP for further management. Follow-up: 3 months, June 2024 Not available 04/10/2024 15:18:05 07/03/2024 07/03/2024 10/12/2023: A1C 6.8 VIT D<12.8 FT4 0.74 Gluc 100 TG 168, LDL 127 03/01/2024: A1C 7.0 HCT 15.7 45 minutes spent with the patient, reviewed her chart, updated her chart and her med list [email or web address] Not available 07/03/2024 16:47:23 07/03/2024 07/03/2024 Assessment: Nicotine smoke: 2 ppd 1995-present = 56 pack years RBILD VS NSIP 8 mm LLL nodule Mild OSAHS, AHI = 2 PLMD Iron deficiency Plan: The following were reviewed and explained to the patient: Chest CT 12/17/22 emphysema, 8 mm LLL nodule, bibasilar GGO Chest CT 04/08/23 emphysema, no nodule, lung bases mosaic attenuation Chest CT 10/14/23 emphysema, diffuse GGO 2-D echocardiogram 04/13/23 EF 65% Lab data 12/05/23 (+) nucleolar ANGELIQUE 1:80 [facility] diagnostic sleep study 02/28/24 sleep onset = 16.5 minutes, REM onset = 282.5 minutes, AHI = 2, REM AHI = 9, PLMI = 12 Ferritin 03/01/24 66 ng/mL Ferritin 07/03/24 85 ng/mL Hct 03/01/24 48.3% Wash U Pulm Dr. Surjit Kohler 04/05/24 note 6MW, ABG, PFT Nicotine cessation counseling provided. [place] for quitting nicotine include getting ready, getting support and encouragement, learning new skills and behaviors and being prepared to handle slips. Tips for dealing with cravings provided. Prevention of subsequent illnesses from nicotine addiction discussed. Comorbidities include but are not limited to hypertension, cerebrovascular disease, coronary heart disease, congestive heart failure, hyperlipidemia, COPD/asthma, peptic ulcer disease, esophagitis/gastri tis, and osteoporosis. Therapy options offered include: Quitting by total abstinence Receiving nicotine replacement therapy Undergoing hypnosis Filling a bupropion or varenicline prescription Enrolling in Quit For Life program Registering at [email or web address] Making a call to 2-416-IJWO-NOW ( ). A strong, clear, personalized message was given to the patient to quit smoking. The patient was urged to set a quit date. We discussed patient's barriers to quitting and I will be of assistance when patient is ready to quit. I encouraged patient to inform friends and family of plans to quit with a request for support. I encouraged the patient to remove all cigarettes from the environment. We reviewed any previous quit attempts and lessons learned from them. I encouraged total abstinence from smoking and advised the patient that drinking alcohol and/or associating with other smokers are associated with failure or relapse. Patient can enroll in [facility]'s smoking cessation class through Kamini Sood RN at . Enrollment is free and classes are held every second Tuesday of the month from 1:30 pm to 2:30 pm at the conference room next to the cafeteria on the ground floor. Follow up with Dr. Surjit Kohler at [phone], option #1 at [facility] building on the 8th floor, [address], in the [facility] to follow up on the pulmonary nodule, ILD and dyspnea. Continue all inhalers as prescribed by Dr. Kohler. Adherence to therapy is advocated. Nonadherence may lead to treatment failure, further progression of the condition, and other complications. Hospitals admissions are often the result of individuals not taking prescription medications accurately. Alternatively, greater adherence to medication regimens have shown to lower rates of hospitalization and decrease total medical costs in patients with chronic medical conditions. Elevation in periodic limb movement index may be contributed by duloxetine and nicotine gum. Non-pharmacologic therapy options for periodic limb movement disorder include avoidance of aggravating drugs and substances, mental alerting activities, short daily hemodialysis for patients in renal failure, exercise, leg massage, stretching calf muscles, use of a weighted blanket and applied heat. Patient will cut down on nicotine use and caffeine intake. BUN, Creatinine, Vitamin E, Vitamin B12, RBC folate, Iron, TIBC, ESR, Magnesium and Hgb are within normal limits. Patient will continue FeSO4 325 mg + Vit C 500 mg daily to keep the ferritin > 75 ng/ml. We will hold off on dopaminergic therapy for now. General information on sleep disordered breathing and evaluation of sleep disordered breathing were covered. We discussed with the patient the impact of weight on: Sleep disordered breathing Hyperlipidemia DM CAD OK Urge urinary incontinence Lumbar spondylosis We discussed with the patient the benefit of PAP therapy on: Sleep disordered breathing Anxiety/Depression DM OK Urge urinary incontinence Educated the patient on sleep hygiene measures. Relaxing rituals to rest easy, understanding foods with positive and negative impact on sleep, creating a peaceful sleep environment, timing of exercise, using herbal sleep aids, and practicing sleep-friendly meditation were covered. To determine how much sleep is needed, the patient will assess where she falls on the spectrum, examine what lifestyle factors such as work schedules and stress are affecting the quality and quantity of sleep. In general, adults need 7-9 hours of sleep. Educated the patient regarding foods that promote sleep. These include but are not limited to cherries, bananas, toast, oatmeal, and warm milk. Educated the patient regarding foods and drinks to avoid before bedtime. These include but are not limited to aged cheese, chocolate, spicy foods, tomato-based sauces, soy, ginseng tea and processed meat. Advocated influenza vaccination annually and pneumonia vaccination CHRISTINA. Advocated weight loss through diet and exercise. Patient's ideal body weight according to height and gender is up to 130 lbs. Encouraged patient to adjust caloric intake to maintain/achieve ideal body weight, emphasizing on fruits, vegetables, whole grains, and fat-free or low-fat products. These include lean meats, poultry, fish, beans, eggs, and nuts and foods that are low in saturated fats, trans-fats, cholesterol, salt (sodium), and glycemic index. Stressed the importance of regular exercise up to the patient's capacity limits. In this case, we recommend 20 min daily walking, 2 days a week of resistance training. Patient to monitor BP daily and bring records to PCP for further management. Follow-up: 3 months, June 2024 Not available 07/03/2024 17:49:02 07/05/2024 07/05/2024 This note is dictated and transcribed by [employer]. Shale Processing Technician variances may occur. Despite proofreading, typographical errors may occur. Occasional wrong-word or 'rejyf-f-hxvg' substitutions may have occurred due to the inherent limitations of voice recording. Read the chart carefully and recognize, using context, where substitutions have occurred. Not available 07/05/2024 15:54:03 Plan of Treatment Reminders Order Date Submit Date Provider Last Modified By Organization Details Last Modified Time Details Appointments [place] nt 15 2024 02:15P M Julian Owen MD Not available Not available Not available Estab kate Avery nt 15 2024 02:30P M Lefty Terrell DPM Not available Not available Not available Any 2024 02:00P M Shelton abdalla MD Not available Not available Not available Any 2024 02:30P M Jenny Hardin MD Not available Not available Not available Lab linette tin, serum or plasm a 2023 025 [facility], [address] [place], [address], 07/03/2024 18:10:09 lipid panel , serum 2024 025 ROSALIND Not available 07/10/2024 04:39:22 TSH + free T4, serum 2024 025 ROSALIND Not available 07/10/2024 04:39:22 CMP, serum or plasm a 01/21/ 2025 01/21/2 025 ROSALIND Not available 07/10/2024 04:39:22 CBC w/ auto diff 2024 025 ROSALIND Not available 07/10/2024 04:39:23 vitam in D, 25-hy droxy , total , serum 2024 025 ROSALIND Not available 07/10/2024 04:39:21 micro album in, urine 2024 025 ROSALIND Not available 07/10/2024 04:39:23 HbA1c (hemo globi n A1c), blood 2024 025 ROSALIND Not available 07/10/2024 04:39:24 vitam in B12 + folat e, serum or blood 2024 025 ROSALIND Not available 07/10/2024 04:39:23 linette tin, serum or plasm a [address] - Outpatient Lab, [address] [place], [address], 07/03/2024 15:31:11 Referral physi brenton thera pist refer ral [email or web address] [facility], [address], [place], [address], 04/23/2024 09:43:31 podia trist refer ral 2024 025 [email or web address] Lefty Terrell DPM, [address], [address], [place], [address], 07/04/2024 13:56:[address] refer ral 2024 025 [email or web address] Kd Morton MD, [address] [facility] [address], [address], [place], [address], 07/04/2024 13:58:31 pulmo nolog ist refer ral 2024 025 [email or web address] Jenny Hardin MD, [address] [facility], [place], [address], 07/04/2024 13:55:[address] refer [facility] 2024 025 [email or web address] Shannon Ruth WINDSHIELD REPAIR TECHNICIAN, [address] [facility], [facility] [address], [place], [address], 07/04/2024 13:58:32 pulmo nolog ist refer [facility] 2024 025 [email or web address] Jenny Hardin MD, [address] [place], [address], 07/04/2024 13:55:17 pain manag ement refer [facility] 2024 025 [email or web address] [facility], [address], [place], [address], 07/04/2024 13:58:31 podia trist refer [facility] 2024 025 [email or web address] Lefty Terrell DPM, [address] [facility], [facility] [address], [place], [address], 07/05/2024 12:25:24 diabe tic ophth almol ogy refer [facility] 2024 025 [email or web address] Alice Alcala MD, [address] [facility], [address], [place], [address], 07/04/2024 13:58:30 otola longngo logis t refer ral - Pleas e call patie nt to sched ule. 2024 025 [facility] Batsheva Jones [facility], [address], [place], [address], 07/04/2024 14:35:20 Procedures colon oscop y scree joaquina (PROC ) 2024 [address], [address] [place] [address] , [address], [place], [address], 07/05/2024 08:30:54 upper endos copy proce dure (EGD) (PROC ) - Pleas e call patie nt to sched ule. [address] [facility], [address] [place] [address] , [address], [place], [address], 07/05/2024 09:05:21 Surgeries None recor ded. Imaging US, duple x, arter ial, lower extre mity, compl ete 2023 024 [email or web address] Not available 05/22/2024 08:19:00 Medication Orders Vitam in C 500 mg table t 2023 024 ROSALIND [id number] [facility], [address] [facility], [place], [address], 04/10/2024 14:54:22 mary us sulfa te 325 mg (65 mg iron) table t 2023 024 ROSALIND [facility] [id number] [facility], [address] [facility], [place], [address], 04/10/2024 14:54:21 Vitam in C 500 mg table t 2024 025 [email or web address] [facility] [address], [address] [facility], [place], [address], 07/03/2024 15:31:16 mary us sulfa te 325 mg (65 mg iron) table t 2024 025 ROSALIND [facility] [address] [facility], [address] [facility], [place], [address], 07/03/2024 15:31:13 Patient TargetsNo targets recorded. Patient InstructionsNo instructions recorded. Reason for Referral Physical Therapist Referral for Sprain of lateral ligament of ankle joint Referring Physician: Lefty Terrell, Podiatric Surgery, Encounter Date: 04/09/2024 Director Of Student Financial Aid Referral for Type 2 diabetes mellitus without complication Referring Physician: Shelton [facility], Encounter Date: 07/03/2024 Senior Mainframe Programmer Analyst Referral for C hronic obstructive pulmonary disease Referring Physician: Shelton [facility], Encounter Date: 07/03/2024 Senior Mainframe Programmer Analyst Referral for O bstructive sleep apnea syndrome Referring Physician: Shelton [facility], Encounter Date: 07/03/2024 Diabetic Ophthalmology Refer ral for Type 2 diabetes mellitus without complication Referring Physician: Shelton [facility], Encounter Date: 07/03/2024 Pain Management Referral for Multiple joint pain Referring Physician: Shelton [facility], Encounter Date: 07/03/2024 Director Of Student Financial Aid Referral for Pain of left ankle joint Referring Physician: Shelton [facility], Encounter Date: 07/03/2024 Commercial Green Retrofit Architect Referral for Pa lpitations Referring Physician: Shelton [facility], Encounter Date: 07/03/2024 Psychiatrist Referral for Mo derate recurrent major depression Referring Physician: Shelton [facility], Encounter Date: 07/03/2024 Bilingual Customer Service Specialist Referral fo r Dysphonia Please call patient to schedule. Referring Physician: Eve [facility] Medicine, Encounter Date: 07/03/2024 Results Created Date Observation Date Name Description Value Unit Range Abnormal Flag Note LastModifiedBy Organization Detail LastModifiedTime 03/14/20 24 XR, ankle , 3 or more view No observ ation record ed. [email or web address] [facility] [place] [address], [place], [address], 03/14/2024 10:03:20 03/14/20 24 XR, ankle , 3 or more view No observ ation record ed. [email or web address] [facility] [place] [address] [facility] [address], [place], [address], 03/14/2024 10:03:37 05/03/20 24 05/03/2024 MRI, cervi brenton spine , w/o contr ast No observ ation record ed. [email or web address] [facility] [address] [facility], [place], [address], 06/11/2024 15:12:45 05/08/20 24 05/07/2024 nerve condu ction study /EMG (PROC ) No observ ation record ed. [address] (Cardiology & Emg) [address] [facility] [address], [place], [address], 06/21/2024 11:03:57 Result Notes None recorded. Problems Name Problem SNOMED Code Status Onset Date Resolution Date Notes Provider Name and Address Organization Details Recorded Time Gastroesoph ageal reflux disease 506988154 Active 2022 Renato Rdz MD [address] [facility], [address], [place], [address], [employer] 3 15:33:29 Mixed anxiety and depressive disorder 979335062 Active 2022 Renato Rdz MD [address] [facility], [address], [place], [address], [employer] 3 15:44:33 Hyperlipide cherelle 60621673 Active 2022 Renato Rdz MD [address] [facility], [address], [place], [address], [employer] 3 16:40:20 Coronary atheroscler osis 910100688 Active 2022 Renato Rdz MD [address], [address], [place], [address], [employer] 3 16:41:10 Fibromyalgi a 109667297 Active 2023 JEANETTE Charles [address], [address], [place], [address], [employer] [facility] 4 14:59:32 Cervical radiculopat hy 59429510 Active 2023 JEANETTE Charles [address], [address], [place], [address], [employer] [facility] 4 15:52:33 Essential hypertensio n 20970004 Active 2023 JEANETTE Charles [address], [address], [place], [address], [employer] [facility] 4 16:02:38 Urinary incontinenc e 567113767 Active 2023 JEANETTE Charles [address], [address], [place], [address], [employer] - [facility] 4 16:22:42 Vitamin D deficiency 04296351 Active 2023 Shelton abdalla MD [address], [address], [place], [address], [employer] [facility] 4 15:55:25 Type 2 diabetes mellitus without complicatio n 656198433 Active 2023 Shelton abdalla MD [address], [address], [place], [address], [facility] [employer] [facility] 4 15:59:29 Spinal stenosis of lumbar region 09869493 Active 2023 Umu Benson MA null, MD - S [facility] 4 11:27:50 Peripheral vascular disease 898685880 Active 2023 Umu Benson MA null, [place] - [facility] 4 16:29:50 Smoker 46843989 Active 2023 Jenny Hardin MD [address], [address], [place], [address], [facility] [place] [facility] 4 13:03:14 Hypothyroid ism 83521958 Active 2023 Shelton abdalla MD [address], [address], [place], [address], [facility] [place] [facility] 4 15:17:04 Obstructive sleep apnea syndrome 33474992 Active 2023 Jenny Hardin MD [address], [address], [place], [address], [facility] [place] [facility] 4 14:46:46 Periodic limb movement disorder 272509203 Active 2023 Jenny Hardin MD [address], [address], [place], [address], [facility] [place] [employer] [facility] 4 14:48:00 Iron deficiency 44748016 Active 2023 Jenny Hardin MD [address], [address], [place], [address], [facility] [place] [facility] 4 14:51:40 Interstitia l lung disease 890387728 Active 2024 Jenny Hardin MD [address], [address], [place], [address], [facility] [place] [employer] [facility] 5 15:16:20 Sleep apnea 91663641 Active 2024 Jenny Hardin MD [address], [address], [place], [address], [facility] [place] [employer] [facility] 5 15:16:20 Serum vitamin B12 below reference range 522863556 Active 2024 Shelton abdalla MD [address], [address], [place], [address], [facility] [employer] [facility] 5 15:59:47 Gastroesoph ageal reflux disease without esophagitis 882016886 Active 2024 Shelton abdalla MD [address], [address], [place], [address], [facility] [employer] [facility] 5 15:59:47 Pain of bilateral knee joints 6632634136586 04 Active 2024 Shelton abdalla MD [address], [address], [place], [address], [place] [facility] [place] [facility] 5 15:59:47 Palpitation s 02147941 Active 2024 Shelton abdalla MD [address], [address], [place], [address], [place] [facility] [place] [facility] 5 15:59:47 Multiple joint pain 52318176 Active 2024 Shelton abdalla MD [address], [address], [place], [address], [place] [facility] [place] [facility] 5 15:59:47 Chronic neck pain 9640447752613 Active 2024 Shelton abdalla MD [address], [address], [place], [address], [place] [facility] [place] [facility] 5 15:59:47 Pain of bilateral hands 6479237363362 9109 Active 2024 Shelton abdalla MD [address], [address], [place], [address], [place] [facility] [place] [facility] 5 15:59:47 Moderate recurrent major depression 90653523 Active 2024 Shelton abdalla MD [address], [address], [place], [address], [place] [facility] [place] [facility] 5 15:59:47 Chronic obstructive pulmonary disease 79829745 Active 2024 Shelton abdalla MD [address], [place], [address], [place] [facility] [place] [facility] 5 15:59:47 Edema of lower extremity 570622026 Active 2024 Shelton abdalla MD [address], [address], [place], [address], [employer] 5 15:59:47 Cigarette smoker 17591279 Active 2024 Shelton abdalla MD [address], [address], [place], [address], [employer] 5 15:59:47 Pain of left ankle joint 0556512370833 9103 Active 2024 Shelton abdalla MD [address], [address], [place], [address], [employer] 5 15:59:48 Dysphonia 37082919 Active 2024 Shelton abdalla MD [address], [address], [place], [address], [employer] 5 16:47:32 Left Achilles tendinitis 6052095692656 02 Active 2024 Lefty Terrell DPM [address], [address], [place], [address], [employer] 5 15:54:13 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 2765890737304 8 Active 2024 Lefty Terrell DPM [address], [place], [address], [employer] 5 15:55:06 Notes:Medical History: Anxie ty/Depression Rhinitis Bruxism COVID infection 11/2022 IgE 86 IU/mL Eosinophils 70/uL (+) nucleolar ANGELIQUE 1:80 Nicotine use Obesity with mild OSAHS, AHI = 2, 02/28/24 Hyperlipidemia T2DM with neuropathy CAD OK Urge urinary incontinence Iron deficiency PLMD Vit D deficiency Cervical DDD/stenosis Lumbar spondylosis Fibromyalgia Procedure History: Normal cardiac catheterization 2023 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 Procedures Surgical History Date Name Laterality Status Provider Name and Address Organization Details Recorded Time 03/05/20 Trigger Point Injection completed Pierre Kaur DPM [address], [address], [place], [address], [facility] [employer] [facility] 03/06/2024 09:23:27 03/05/20 Unna boot - LE edema completed Pierre Kaur DPM [address], [address], [place], [address], [facility] [employer] [facility] 03/06/2024 09:23:04 08/17/19 cardiac catheterization completed Swati Joyce RN MD [employer] [facility] [employer] [facility] 09/13/2023 15:40:03 Appendectomy completed Not Available [facility] 08/12/2022 00:03:37 completed Mirela Vivas CNA MD [employer] [facility] [employer] 11/09/2023 16:00:14 excision of varicose vein completed Not Available [facility] 08/12/2022 00:03:37 Imaging Results Imaging Date Name Status LastModified by Organiz atformerly [facility] Details LastModified Time 03/14/2024 XR, ankle, 3 or more view [facility] [place] [address], [place], [address], 03/14/2024 10:03:20 03/14/2024 XR, ankle, 3 or more view [facility] [place] [address], [place], [address], 03/14/2024 10:03:37 05/03/2024 MRI, cervical spine, w/o contrast active [email or web address] [facility] [address] [facility], [place], [address], 06/11/2024 15:12:45 05/07/2024 nerve conduction study/EMG (PROC) completed [address] (Cardiology & Emg) [address], [place], [address], 06/21/2024 11:03:57 Procedure Notes None recorded. Medical Equipment None Reported. Allergies Allergen ID Allergen Name Allergen Category Reaction Reaction Severity Criticality Documentation Date Start Date Code Code System Note Provider Name and Address Organization Details Recorded Time 53504 Roxicet medicatio n Not available Not available Not available 08/12/2022 42340 9 RxNorm Not Available [facility] 3 00:06:28 08701 isosorbid e medicatio n headache severe Not available 08/08/2023 6057 RxNorm FANG [place], [place] [employer] 4 14:29:58 Medications Name Sig Start Date Stop Date Status Note LastModified by Organization Details LastModified Time atorvasta tin 40 mg tablet TAKE 1 TABLET BY MOUTH EVERY DAY active Not Available Not Available No t Available promethaz ine-DM 6.25 mg-15 mg/5 mL oral syrup TAKE 5 ML BY MOUTH EVERY 4 HOURS NEEDED FOR 10 DAYS 09/12 completed Not Available Not Available Not Available Vitamin C 500 mg tablet Take 1 tablet every day by oral route. 2024 active Not Available Not Available Not Avai lable azithromy kimberlee 250 mg tablet TAKE 2 TABLETS BY MOUTH TODAY, THEN TAKE 1 TABLET DAILY FOR 4 DAYS DIRECTED 09/12 completed Not Available Not Available Not Available ofloxacin 0.3 % eye drops PLEASE SEE ATTACHED FOR DETAILED DIRECTIO NS 12/28 completed Not Available Not Available Not Available prednison e 20 mg tablet PLEASE SEE ATTACHED FOR DETAILED DIRECTIO NS 09/12 completed Not Available Not Available Not Available isosorbid e mononitra te ER 30 mg tablet,ex tended release 24 hr TAKE 1 TABLET BY MOUTH DAILY 08/08 completed allgeric Not Available Not Available Not Available sertralin e 100 mg tablet TAKE 1 TABLET BY MOUTH EVERY DAY 09/12 completed Not Available Not Available Not Available penicilli n V potassium 500 mg tablet TAKE 1 TABLET BY MOUTH FOUR TIMES DAILY UNTIL ALL TAKEN 12/20 completed Not Available Not Available Not Available ciproflox acin 500 mg tablet TAKE 1 TABLET BY MOUTH EVERY 12 HOURS FOR 10 DAYS 10/11 completed Not Available Not Available Not Available sulfameth oxazole 800 mg-trimet hoprim 160 mg tablet TAKE 1 TABLET BY MOUTH EVERY 12 HOURS 12/20 completed Not Available Not Available Not Available tramadol 50 mg tablet TAKE 1 TABLET BY MOUTH EVERY 6 HOURS NEEDED 09/12 completed Not Available Not Available Not Available ketorolac 0.5 % eye drops PLEASE SEE ATTACHED FOR DETAILED DIRECTIO NS 12/28 completed Not Available Not Available Not Available prednisol one acetate 1 % eye drops,stephane pension INSTILL 1 DROP INTO SURGICAL EYE 3 TIMES PER DAY STARTING AFTER SURGERY, CONTINUI NG FOR 3 WEEKS 12/04 completed Not Available Not Available Not Available nicotine (polacril ex) 4 mg gum CHEW 1 PIECE BY MOUTH DIRECTED 07/03 completed Not Available Not Available Not Available Triple Antibioti c 3.5 mg-400 unit-5,00 0 unit/gram topical ointment PUT IN EACH NOSTRIL EVERY HOUR active Not Available Not Available No t Available ferrous sulfate 325 mg (65 mg iron) tablet Take 1 tablet every day by oral route. active Not Available Not Available No t Available dexametha sone 4 mg tablet TAKE 1 TABLET BY MOUTH EVERY 12 HOURS. NOT CONTRACT ED 09/12 completed Not Available Not Available Not Available omeprazol e 20 mg capsule,d elayed release TAKE 1 CAPSULE EVERY DAY BY MOUTH 30 MINUTES BEFORE A MEAL FOR 30 DAYS. 12/04 completed Not Available Not Available Not Available ibuprofen 600 mg tablet TAKE 1 TABLET 3 TIMES A DAY BY MOUTH WITH MEALS FOR 30 DAYS. 07/03 completed Not Available Not Available Not Available levofloxa ikmberlee 500 mg tablet TAKE 1 TABLET BY MOUTH EVERY 24 HOURS 03/10 completed Not Available Not Available Not Available methylpre dnisolone 4 mg tablets in a dose pack TAKE DIRECTED FOR 6 DAYS 09/12 completed Not Available Not Available Not Available albuterol sulfate HFA 90 mcg/actua tion aerosol inhaler INHALE 2 PUFFS BY MOUTH EVERY 4 HOURS NEEDED active Not Available Not Available No t Available losartan 100 mg tablet TAKE 1 TABLET BY MOUTH EVERY DAY IN THE MORNING 12/04 completed Not Available Not Available Not Available metformin ER 500 mg tablet,ex tended release 24 hr TAKE 1 TABLET BY MOUTH EVERY DAY AT DINNER FOR 30 DAYS active Not Available Not Available No t Available sertralin e 50 mg tablet TAKE 1 TABLET BY MOUTH EVERY DAY 04/21 completed Not Available Not Available Not Available amoxicill in 875 mg-potass ium clavulana te 125 mg tablet TAKE 1 TABLET BY MOUTH EVERY 12 HOURS 09/12 completed Not Available Not Available Not Available Adult Low Dose Aspirin 81 mg tablet,de layed release Take 1 tablet every day by oral route. active Not Available Not Available No t Available Asprin Ec Low Dose 81 mg tablet,de layed release Take 1 tablet every day by oral route. 11/26 completed Not Available Not Available Not Available bupropion HCl XL 300 mg 24 hr tablet, extended release TAKE 1 TABLET BY MOUTH EVERY DAY IN THE MORNING 11/08 completed Not Available Not Available Not Available bupropion HCl XL 150 mg 24 hr tablet, extended release TAKE 1 TABLET BY MOUTH EVERY DAY IN THE MORNING 12/04 completed Not Available Not Available Not Available duloxetin e 30 mg capsule,d elayed release TAKE 1 CAPSULE BY MOUTH AT BEDTIME TAKE WITH 60MG TO EQUAL 90MG DAILY 07/03 completed Not Available Not Available Not Available duloxetin e 60 mg capsule,d elayed release TAKE 1 CAPSULE BY MOUTH AT BEDTIME TAKE WITH 30MG DAILY TO EQUAL 90MG active only taking 60mg now Not Available Not Available Not Available pregabali n 50 mg capsule PLEASE SEE ATTACHED FOR DETAILED DIRECTIO NS 09/12 completed Not Available Not Available Not Available pregabali n 150 mg capsule TAKE 1 CAPSULE BY MOUTH TWICE A DAY FOR 30 DAYS (DISCONT INUE 50MG DOSE) 11/08 completed Not Available Not Available Not Available Symbicort 160 mcg-4.5 mcg/actua tion HFA aerosol inhaler active Not Available Not Available Not Available cholecalc iferol (vitamin D3) 1,250 mcg (50,000 unit) capsule TAKE 1 CAPSULE BY MOUTH ONE TIME PER WEEK 2024 active Not Available Not Available Not Avai lable OneTouch Verio test strips USE 1 STRIP EVERY DAY NEEDED FOR 100 DAYS. 07/03 completed Not Available Not Available Not Available OneTouch Delica Plus Lancet 33 gauge USE TO TEST BLOOD GLUCOSE ONCE DAILY 07/03 completed Not Available Not Available Not Available OneTouch Delica Plus Lancet 30 gauge USE ONCE DAILY active Not Available Not Available No t Available OneTouch Verio Reflect Meter USE DIRECTED TO TEST BLOOD SUGARS NEEDED UP TO ONCE DAILY 10/24 completed Not Available Not Available Not Available Paxlovid 300 mg (150 mg x 2)-100 mg tablets in a dose pack TK 2 NIRMATRE LVIR TS AND 1 RITONAVI R T TOGETHER PO BID FOR 5 DAYS 12/20 completed Not Available Not Available Not Available Vitals Date Recorded Body height Heart rate Systolic blood pressure Diastolic blood pressure Provider Name and Address Organization Details Last Updated DateTime 04/09/2024 162.56 cm 78 /min 101 mm[Hg] 69 mm[Hg] Paola Zhang MD [employer] [facility] [employer] 04/09/2024 15:27:24 Date Recorded Body height Body mass index (BMI) Body weight Oxygen saturation Oxygen saturation in Arterial blood by Pulse oximetry Heart rate Body temperature Systolic blood pressure Diastolic blood pressure Provider Name and Address Organization Details Last Updated DateTime 4 162.56 cm 32.4 kg/m2 23283.9 6 g 97 % 97 % 70 /min 98.1 [degF] 122 mm[Hg] 70 mm[Hg] Cheli Matthews CMA [employer] [facility] [employer] 4 14:53:04 Date Recorded Heart rate Respiratory rate Provider N jj and Address Organization Details Last Updated DateTime 04/10/2024 70 /min 13 /min Jenny Hardin MD [address], [address], [address], [place] [employer] [facility] [employer] 04/10/2024 15:18:21 Date Recorded Body height Heart rate Oxygen saturation Oxygen saturation in Arterial blood by Pulse oximetry Body temperature Body mass index (BMI) Body weight Systolic blood pressure Diastolic blood pressure Provider Name and Address Organization Details Last Updated DateTime 5 162.56 cm 71 /min 95 % 95 % 97.2 [degF] 32.3 kg/m2 07849.3 7 g 116 mm[Hg] 72 mm[Hg] Kailyn Mello MA [employer] [facility] [employer] 5 15:14:38 Date Recorded Heart rate Respiratory rate Provider N jj and Address Organization Details Last Updated DateTime 07/03/2024 71 /min 15 /min Jenny Hardin MD [address], [address], [place], [address], [facility] [employer] [facility] 07/03/2024 15:34:26 Date Recorded Body height Body mass index (BMI) Body weight Body temperature Heart rate Systolic blood pressure Diastolic blood pressure Provider Name and Address Organization Details Last Updated DateTime 162.56 cm 32.3 kg/m2 56238.3 7 g 97.2 [degF] 72 /min 116 mm[Hg] 72 mm[Hg] FANG Suero [facility] [employer] [facility] 15:49:08 Date Recorded Body height Body mass index (BMI) Body weight Heart rate Respiratory rate Oxygen saturation Oxygen saturation in Arterial blood by Pulse oximetry Systolic blood pressure Diastolic blood pressure Provider Name and Address Organization Details Last Updated DateTime 162.56 cm 32.3 kg/m2 94361.3 7 g 80 /min 14 /min 98 % 98 % 127 mm[Hg] 75 mm[Hg] Erica De La Rosa [facility] [employer] [facility] 14:33:15 Social History Question Answer Notes LastModified by Organizat ion Details LastModified Time Tobacco Smoking Status Current Every Day Smoker 2ppd Not Available [employer] 08/12/2022 00:03:20 What Is Your Level Of Alcohol Consumption? None Information not available 11/09/2023 What Is Your Level Of Caffeine Consumption? Moderate Coffee [email or web address] Information not available 12/05/2023 In The 14 Days Before Symptom Onset, Have You Had Close Contact With A Laboratory-confir med COVID-19 While That Case Was Ill? No Information not available 07/03/2024 In The 14 Days Before Symptom Onset, Have You Had Close Contact With A Person Who Is Under Investigation For COVID-19 While That Person Was Ill? No Information not available 07/03/2024 Are You Currently Employed? Yes Information not available 07/03/2024 What Type Of Diet Are You Following? REGULAR Information not available 07/03/2024 Do You Have An Electrostatic Air Filter? No Information not available 07/03/2024 What Is Your Occupation? Occasional Information not available 07/03/2024 What Is The Fluoride Status Of Your Home? Unknown Information not available 07/03/2024 Are There Any Guns Present In Your Home? No Information not available 07/03/2024 Do You Have A Humidifier? Yes Information not available 07/03/2024 Do You Have Moisture Problems In Your Home? No Information not available 07/03/2024 What Was The Date Of Your Most Recent Tobacco Screening? 07/03/2024 Information not available 07/03/2024 Do You Have Any Pets? Yes Information not available 07/03/2024 What Is Your Relationship Status? Information not available 07/03/2024 Do You Use Your Seat Belt Or Car Seat Routinely? Yes Information not available 07/03/2024 Do You Have Smoke And Carbon Monoxide Detectors In Your Home? Yes Information not available 07/03/2024 Are You Passively Exposed To Smoke? Yes Information no t available 07/03/2024 Are There Any Smokers In Your House? Yes Information not available 07/03/2024 How Much Tobacco Do You Smoke? 2 PPD 1-2 Packs Per Day Information not available 11/09/2023 Do You Feel Stressed (tense, Restless, Nervous, Or Anxious, Or Unable To Sleep At Night)? [id number] Information not available 07/03/2024 Do You Use Sunscreen Routinely? No Information not available 07/03/2024 How Many Years Have You Smoked Tobacco? 37 Information not available 11/09/2023 Have You Recently Traveled Abroad? No Information not available 07/03/2024 Do You Have Any Dietary Restrictions? No Information not available 07/03/2024 Do You Or Have You Ever Used Any Other Forms Of Tobacco Or Nicotine? No Information not available 10/12/2023 Sex: Female Functional Status Question Answer Note LastModified by Organization D etails LastModified Time What is your exercise level? None Information not available 07/03/2024 Mental Status None recorded. Family History Relationship Description Onset Age of this Age Resolved Age Notes LastModified by Organization Details LastModified Time Father Ulcer [id number] Not available 08/12/2022 00:03:38 Mother Family history of malignant neoplasm [id number] Not available 08/12/2022 00:03:38 Brother Family history of malignant neoplasm Not available 2023 15:59:24 Medical History Condition Response BLINDNESS N RHEUMATIC FEVER N BLADDER PROBLEMS N KIDNEY STONES N MRSA N OTHER # 1 N POLIO N LUNG DISEASE/DISORDER Y HISTORY OF DRUG ABUSE N RADIATION / CHEMOTHERAPY N COPD Y Other # 2 N BLOOD DISEASES N SURGERY N EAR OR HEARING PROBLEMS N MUMPS N SHINGLES N FEMALE PROBLEMS / INFECTIONS N DEPRESSION (INCLUDING POST ) Y BOWEL PROBLEMS N FAILED BACK SYNDROME N STROKE/TIA N THYROID DISEASE N ULCERS N BENIGN PROSTATIC HYPERPLASIA N MEASLES N CERVICALGIA N TB SKIN TEST N HYPOTENSION N MYOCARDIAL INFARCTION N PARAPELGIA N OBESITY N GERD/NAUSEA N ANEURYSM N URINARY/BLADDER/KIDNEY PROBLEMS N CORONARY ARTERY DISEASE (CAD) N MENIERE'S DISEASE N Do you have Advance directive? N ADDICTION CONCERNS N ENDOMETRIOSIS N USE OF BLOOD THINNERS N SKIN PROBLEMS N EMPHYSEMA N GASTROINTESTINAL DISORDER N PERIPHERAL ARTERY DISEASE N MUSCLE,JOINT OR BONE PROBLEMS N GASTROINTESTINAL BLEEDING N BLOOD CLOTS Y ASTHMA N CATARACTS N Abdominal Pain N ERECTILE DYSFUNCTION N ARTERIAL INSUFFICIENCY N GI PROBLEMS N CHF N Low Testosterone N NEUROPATHY N INFERTILITY N AIDS/HIV N FRACTURES N CHEMOTHERAPY / RADIATION N VISION/EYE PROBLEMS N LIVER DISEASE N MALE HYPOGONADISM N HYPERTENSION N TOURETTE'S N ANXIETY DISORDER Y BLOOD TRANSFUSION N ANEMIA/BLOOD DISORDER N CHRONIC EAR INFECTIONS N BRONCHITIS N TUBERCULOSIS N GLAUCOMA N FOOT PROBLEM N DIVERTICULITIS N SLEEP APNEA N CHICKENPOX N ALLERGIES/HAYFEVER N BACK INJECTIONS N INFECTIOUS DISEASE N PROSTATE N HEART ARRHYTHMIA N ESRD N INSOMNIA N HIGH CHOLESTEROL / HYPERLIPIDEMIA Y EYE PROBLEMS N HYPERTHYROIDISM N PVD N EATING DISORDER N EDEMA N CHRONIC PAIN SYNDROME N CONSTIPATION N CAROTID BLOCKAGE N BACK / NECK PROBLEMS Y HAVE YOU BEEN HOSPITALIZED OR SEEN IN [facility] ER IN THE PAST YEAR ? N ATHEROSCLEROSIS N BREAST PROBLEMS N DIALYSIS N POLYCYSTIC OVARIES N ECZEMA N FIBROMYALGIA Y OSTEOPOROSIS N ARTHRITIS N NO SIGNIFICANT PAST MEDICAL HISTORY N APPENDICITIS N DIABETES, TYPE Y BAD TEETH N VON WILLIBRAND'S DISEASE N HEARTBURN / REFLUX Y ADD/ADHD N AUTISM SPECTRUM DISORDER (ASD) N POST LAMINECTOMY SYNDROME N HEPATITIS / LIVER DISEASE N PULMONARY DISEASE Y GOUT N SLEEP DISORDER N ALZHEIMER'S DISEASE N PAIN N DEMENTIA N HERPES N SEIZURES/EPILEPSY N HEADACHES/MIGRAINES Y VASCULAR DISEASE N PACEMAKER N DIZZINESS N KIDNEY DISEASE N HEART DISEASE/HEART PROBLEMS N SCARLET FEVER N MULTIPLE SCLEROSIS N MENTAL DISORDER/ILLNESS N DEVELOPMENTAL OR BEHAVIORAL DISORDERS N NEUROPSYCHOLOGICAL N CANCER: SPECIFY N CARDIAC ARRHYTHMIA N PNEUMONIA N ATRIAL FIBRILLATION N Gall Stones N PULMONARY EMBOLISM N AUTOIMMUNE DISEASE N Gynecological History Statement/Question Response STIs/STDs N How many live births 4 Sexually Active? N Obstetrics History GPAL:G 9 P 4 0 5 3 Type Value Full Term 4 Spontaneous 5 Living 3 Total 9 Immunizations Vaccine Type Date Status Note Provider Nam e and Address Organization Details Recorded Time COVID-19, mRNA, LNP-S, PF, 30 mcg/0.3 mL dose 08/25/2020 completed Montse Garcia RMA null, [place] [employer] [facility] 07/03/2024 15:49:37 COVID-19, mRNA, LNP-S, PF, 30 mcg/0.3 mL dose 09/16/2020 completed Montse Garcia RMA null, [place] [employer] [facility] 07/03/2024 15:49:37 COVID-19, mRNA, LNP-S, PF, 30 mcg/0.3 mL dose, gennaro-sucrose 07/13/2021 completed Montse Garcia RMA null, [place] - [facility] 07/03/2024 15:49:37 Influenza, split virus, quadrivalent, PF 07/13/2021 completed Montse Garcia RMA null, [place] [facility] 07/03/2024 15:49:37 Influenza, high-dose, quadrivalent, PF 04/21/2023 completed Montse Garcia RMA null, MD - [facility] 07/03/2024 15:49:55 Influenza, split virus, quadrivalent, PF 04/21/2023 completed Renato Rdz MD [address], [address], [facility] [employer] [facility] 04/22/2023 07:12:32 Past Encounters Encounter ID Performer Location Encounter Start Date Encounter Closed Date Diagnosis/Indication Diagnosis SNOMED-CT Code Diagnosis ICD10 Code Diagnosis Note [id number] [facility] Darek rasmussen [address] [place] [address] 03/30/2021 00:00:00 03/31/2021 06:33:59 [id number] Renato Rdz MD [facility] Darek rasmussen [address] [place] [address] [place] [address] 12/07/2022 15:01:20 12/07/2022 15:40:05 Cough 35813623 R05.9 Suggest delsym. Gastroesop hageal reflux disease 842324909 K21.9 Continue omeprazole . 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 Has malaise and fatigue Coronary arteriosclerosis 08487391 I25.10 Pain of le ft ankle joint 9258578213 1847087 M25.572 Mixed anxi ety and depressive disorder 636443320 F41.8 [id number] Renato Rdz MD [facility] Darek rasmussen [address] [place] [address] [place] [address] 04/21/2023 15:40:23 04/21/2023 17:00:11 Chronic obstructive pulmonary disease 29949246 J44.9 Depressive disorder 3548 9007 F32.A Wean off sertraline instructed on this. will start wellbutrin while weaning off the sertraline .F/u in 6-8 weeks Administra tion of influenza vaccine 25483558 Z23 Hyperlipidemia 81260934 E78.5 Coronary atherosclerosis 127630348 I25.10 Has cardiac catheter scheduled for 05/10/23. [id number] JEANETTE Charles [facility] Darek rasmussen [address] [place] [address] 07/08/2023 12:33:49 07/08/2023 13:18:03 Cough 84913495 R05.9 Acute sinusitis 98905316 J01.90 Chronic ob structive pulmonary disease 28569944 J44.9 [id number] JEANETTE Charles [facility] Jay eran [address] [place] [address] [place] [address] 08/08/2023 14:30:38 08/08/2023 15:29:39 Coronary arteriosclerosis 88221543 I25.10 Cardiomegaly 7740373 I51 .7 Chronic ob structive pulmonary disease 80190328 J44.9 Cough 19409806 R05.9 Dental abscess 954004197 K04.7 Fibromyalgia 321959026 M 79.7 Depressive disorder 3548 9007 F32.A [id number] JEANETTE Charles [facility] Jay eran [address] [place] [address] [place] [address] 09/13/2023 15:23:42 09/13/2023 16:33:52 Cervical radiculopathy 16709332 M54.12 Fibromyalgia 957155390 M 79.7 Gastroesop hageal reflux disease 399659954 K21.9 Mixed anxi ety and depressive disorder 574163447 F41.8 Hyperglycemia 71633633 R 73.9 Essential hypertension 81824148 I10 Palpitations 18363361 R0 0.2 Sinusitis 28180698 J32.9 Joint pain 72818281 M25. 50 Screening for malignant neoplasm of cervix 521104351 Z12.4 Screening for malignant neoplasm of breast 628004734 Z12.39 At pending sale to [facility] risk of nutritional deficit 327385232 Z91.89 Urinary incontinence 165 732295 R32 Gastroesop hageal reflux disease without esophagitis 144160309 K21.9 Cardiomegaly 9375640 I51 .7 Chronic ob structive pulmonary disease 00253148 J44.9 Coronary atherosclerosis 867222581 I25.10 Depressive disorder 3548 9007 F32.A [id number] Shelton johnson MD [facility] Internal Med Darek rasmussen [address] [place] [address] 10/12/2023 14:22:39 10/12/2023 16:22:35 Screening - NAD 612733638 Z13.9 C-scope: Get this Mammogram: 09/12/2023: NegDEXA: Get this done PAP: Get this done Get yearly flu shot, get tdap, get shingrix vaccine and get COVID 19 vaccines RTC in 3 months, do labs, ER if worse, she did verbalize his understand ing of the above Screening for osteoporosis 533326732 Z13.820 Gynecologi c examination 92435180 Z01.419 Gastroesop hageal reflux disease without esophagitis 113151752 K21.9 On omeprazole 20mg daily, take as neededGet EGD done Screening for malignant neoplasm of colon 838240245 Z12.[address]2 [address] Mena 12/29/2022 Dr Francois 08/23/2023 , as per his note, she is s/p [facility] Cholesterol screening 27 3466798 Z13.220 On ASAOn atorvastat in 40mg daily Serum diamond min B12 below reference range 213934522 R79.89 Pain of bi lateral knee joints 9144899306 48359 M25.561 M25.562 Get a referral to ortho Multiple joint pain 3567 8005 M25.50 On lyrica 150mg bid, will refer to rheumatolo gy, may need to wean off the lyrica Chronic neck pain 607430 6994 107 M54.2 Has noted N/T in the tiffani handsWill get MRI C-spineMay need to see NS Type 2 sanjuanita betes mellitus without complication 293816964 E11.9 On metformin ER 500mg daily, states that her sugars are elevated d/t her being given steroids by per prior PCP for her joint pain, she has tried to control her diet nowShe states that her ACCU are now 100-110Get labs Pain of bi lateral hands 7467997550 9466846 M79.641 M79.642 States was told she has had CTS, will refer to ortho, may need EMG/NCV done Moderate r ecurrent major depression 53610125 F33.1 Not suicidal or homicidalG et a referral to psychiatry Chronic ob structive pulmonary disease 16622579 J44.9 CT chest 04/08/2023 Get a referral to pulmonary MD Addendum: 10/20/2023 : AndersonCT chest/A/P: 10/14/2023 Cigarette smoker 6656455 7 F17.210 Advised to quit!2PPD for 40+ years Obstructiv e sleep apnea syndrome 29960663 G47.33 Noted fatigue, will refer to Dr Hardin Edema of l ower extremity 574238880 R60.0 No pitting edema seen today, will get a referral to cardiology , will order US tiffani LE venous and arterial doppler [id number] Dodie Daniels MD [facility] [place] [place] [address] [place] [address] 11/09/2023 15:30:34 11/09/2023 16:52:34 Bilateral shoulder joint pain 2290703175 8782201 M25.511 M25.057 [id number] Dodie Daniels MD [facility] [place] [address] [place] [address] 11/16/2023 15:39:53 11/16/2023 16:30:51 Pain of bilateral knee joints 0506110093 58707 M25.561 M25.647 [id number] Jenny Hardin MD [facility] [address] [address] 12/05/2023 11:48:52 12/06/2023 09:52:46 Dyspnea on exertion 45267388 R06.09 R05.9 T78.40XA D89.9 J84.9 Smoker 94740731 F17.218 F17.219 Z87.891 Interstiti al lung disease 490222111 J84.9 [id number] Jenny Hardin MD [facility] [address] [address] 12/29/2023 16:40:21 12/30/2023 08:01:23 Smoker 63379888 F17.218 F17.219 Z87.891 Interstiti al lung disease 738755939 J84.9 Sleep apnea 22640437 G47 .30 G47.33 G47.36 G47.61 Dyspnea on exertion 6084 5006 R06.09 R05.9 J84.9 [id number] Shelton johnson MD [facility] Internal Med [facility] [address] [facility] [place] [address] 02/27/2024 15:30:43 02/27/2024 16:30:45 Screening - NAD 447987846 Z13.9 C-scope: Get this, ordered again 02/27/2024 , understand s the risks for not doing this! Mammogram: 09/12/2023: NegDEXA: 10/20/2023 : Neg PAP: Dr Zain Mayberry [facility] Get yearly flu shot, get tdap, get shingrix vaccine and get COVID 19 vaccines RTC in 3 months, do labs, ER if worse, she did verbalize his understand ing of the above Screening for osteoporosis 890363330 Z13.820 Gastroesop hageal reflux disease without esophagitis 973132175 K21.9 On omeprazole 20mg daily, take as neededGet EGD done Screening for malignant neoplasm of colon 700628046 Z12.11 Palpitations [address]493 R[address]2 [address] Mena 12/29/2022 Dr Francois 08/23/2023 , as per his note, she is s/p [facility] 10/31/2023 : f/u in one year, cut back on Lyrica as it caused weight gainWill now refer to Dr Eisenberg [facility] Cholesterol screening 27 9767996 Z13.220 On ASAOn atorvastat in 40mg daily Serum diamond min B12 below reference range 057217129 R79.89 Pain of bi lateral knee joints 3251338356 [address] Daniels 11/09/2023 , nothing surgical, no further f/u Multiple joint pain 3567 8005 M25.50 Not on lyrica 150mg bid Dr Daniels 11/10/2023 , referred to pain management and PT Chronic neck pain 361089 5748 107 M54.2 Has noted N/T in the tiffani handsWill get MRI C-spineMay need to see NS MRI 10/20/2023 Now has an apt with [place] as per her history 02/27/2024 Type 2 sanjuanita betes mellitus without complication 069344991 E11.9 On metformin ER 500mg daily, states that her sugars are elevated d/t her being given steroids by per prior PCP for her joint pain, she has tried to control her diet nowShe states that her ACCU are now 100-110Get labs Dr Alcala 12/08/2023 Pain of bi lateral hands 9968778584 1890708 M79.641 M79.642 States was told she has had CTS, will refer to ortho, may need EMG/NCV done, Dr Daniels 11/10/2023 , needs to see pain management and get PTShe was referred to Dr Vazquez Moderate r ecurrent major depression 23616815 F33.1 Not suicidal or homicidalG et a referral to psychiatry On duloxetine Amadeo Smith [employer] Chronic ob structive pulmonary disease 66747469 J44.9 CT chest 04/08/2023 Get a referral to pulmonary MD Addendum: 10/20/2023 : AndersonCT chest/A/P: 10/14/2023 Dr Hardin 12/29/2023 , diagnosed with ILD and is now to see a pulmonolog ist in [facility] Cigarette smoker 7791618 7 F17.210 Advised to quit!2PPD for 40+ years Obstructiv e sleep apnea syndrome 98929315 G47.[address] Ann to get sleep study as per history Edema of l ower extremity 316768005 R60.0 No pitting edema seen today, will get a referral to cardiology , will order US tiffani LE venous and arterial doppler US duplex venous 10/24/2023 : Dr Morton Hypothyroidism 23918554 E03.9 US thyroid 11/29/2023 Pain of le ft ankle joint 8934883567 8609311 M25.572 Needs to see podiatry [id number] Jenny Hardin MD [facility] [address] [address] 03/01/2024 14:15:35 03/02/2024 08:58:25 Smoker 00754671 F17.218 F17.219 Z87.891 Interstiti al lung disease 537089256 J84.9 Sleep apnea 31261265 G47 .33 Dyspnea on exertion 6084 5006 R06.09 R05.9 J84.9 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 D50.8 E83.42 [id number] Pierre Kaur DPM [facility] Pod[facility] [address] [facility] [address] [place] [address] 03/05/2024 11:19:12 04/06/2024 11:36:04 Pain of left ankle joint 9502761903 1029710 M25.889 [id number] Lefty Terrell DPM [facility] Podiatry [place] [address] [place] [address] 03/12/2024 15:41:12 03/15/2024 16:28:58 Fibromyalgia 943271556 M79.7 follow-up with PCP for treatment, recommend neurology consult Sprain of lateral ligament of ankle joint 999381209 S93.491A S93.492A mri leftrx cam boot - short leftrecomm end cane/walke r to assist weight bearingfol low up testing Neuralgia 54315659 M79.2 Ankle pain 637647022 M25 .571 M25.572 xr neg bilateral ankles [id number] Lefty Terrell DPM [facility] Podiatry [place] [address] [place] [address] 04/09/2024 15:00:06 06/07/2024 14:03:27 Peripheral vascular disease 613771163 I73.9 recommend follow-up with Dr Mena Cigarette smoker 8510954 7 F17.210 discontinu e smoking Dilated capillaries 2487 95400 I78.8 left anterior ankle - possibly due to vascular diseaseven ous study in - pos for disease of the PT vein left without DVTobtain PAD studys Sprain of lateral ligament of ankle joint 839024736 S93.491A S93.492A left anklemri left - denied by insurancer x cam boot - short left not wearingrec ommend cane/walke r to assist weight bearingRX PT therapy [id number] [facility] Pulmonolo gy [place] [address] [place] [address], [facility] [address] [place] [address] 04/10/2024 14:43:10 04/11/2024 11:54:42 Smoker 06174416 F17.218 F17.219 Z87.891 Interstiti al lung disease 291483218 J84.9 Sleep apnea 43035026 G47 .33 Dyspnea on exertion 6084 5006 R06.09 R05.9 J84.9 Iron deficiency 21151212 E61.1 [id number] Jenny Hardin MD [facility] Pulmonolo gy [place] [address] [place] [address] 07/03/2024 14:41:39 07/09/2024 14:26:44 Smoker 15681689 F17.218 F17.219 Z87.891 Interstiti al lung disease 504066315 J84.9 Sleep apnea 35223683 G47 .33 Iron deficiency 57837494 E61.1 [id number] Luciana Bharath [facility] Internal Med [facility] [address] [address] 07/03/2024 15:35:58 07/03/2024 17:03:06 Screening - NAD 629242686 Z13.9 C-scope: Get this, ordered again 02/27/2024 , understand s the risks for not doing this! Mammogram: 09/12/2023: NegDEXA: 10/20/2023 : Neg PAP: Dr Zain Mayberry [facility] Get yearly flu shot, get tdap, get shingrix vaccine and get COVID 19 vaccines RTC in 3 months, do labs, ER if worse, she did verbalize his understand ing of the above Screening for osteoporosis 840831105 Z13.820 Gastroesop hageal reflux disease without esophagitis 162092294 K21.9 On omeprazole 20mg daily, take as neededGet EGD done Screening for malignant neoplasm of colon 655662311 Z12.11 Palpitations [address] R0 [address]2 [address] Mena 12/29/2022 Dr Francois 08/23/2023 , as per his note, she is s/p [facility] 10/31/2023 : f/u in one year, cut back on Lyrica as it caused weight gainNeeds to keep her apt with Dr Morton as HV is not taking her insurance Cholesterol screening 27 7896493 Z13.220 On ASAOn atorvastat in 40mg daily Serum diamond min B12 below reference range 866613391 R79.89 Pain of bi lateral knee joints 9955546815 [address] Daniels 11/09/2023 , nothing surgical, no further f/u Multiple joint pain 3567 8005 M25.50 Not on lyrica 150mg bid Dr Daniels 11/10/2023 , referred to pain management and PT Chronic neck pain 291197 7673 107 M54.2 Has noted N/T in the tiffani handsWill get MRI C-spineMay need to see NS MRI 10/20/2023 MRI C-spine 05/03/2024 Now has an apt with NS in [facility] Billy Ana Maria Armenta [employer]IAN in pain management Type 2 sanjuanita betes mellitus without complication 609415097 E11.9 On metformin ER 500mg daily, states that her sugars are elevated d/t her being given steroids by per prior PCP for her joint pain, she has tried to control her diet nowShe states that her ACCU are now 100-110Get labs Dr Alcala 12/08/2023 Pain of bi lateral hands 2022914880 5545332 M79.641 M79.642 States was told she has had CTS, will refer to ortho, may need EMG/NCV done, Dr Daniels 11/10/2023 , needs to see pain management and get PTShe was referred to Dr Vazquez Moderate r ecurrent major depression 81112488 F33.1 Not suicidal or homicidalG et a referral to psychiatry On duloxetine 60mg dailyDebra Seiffert [employer] 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 Chronic ob structive pulmonary disease 50697551 J44.9 CT chest 04/08/2023 Get a referral to pulmonary MD Addendum: 10/20/2023 : AndersonCT chest/A/P: 10/14/2023 Dr Hardin 12/29/2023 , diagnosed with ILD and is now to see a pulmonolog ist [facility] UDr Lashawn 07/03/2024 , [facility] U pulmonolog ist Dr Jose F GUADARRAMA 04/05/2024 Discussed her ongoing fatigue and SOB 07/03/2023 , various etiologies including COPD as well as CAD could be the reason for her fatigueAdv ised to keep her apts with cardiology and pulmonary, also should see her psychiatri s, get labs Cigarette smoker 5614615 7 F17.210 Advised to quit!2PPD for 40+ years Obstructiv e sleep apnea syndrome 01809835 G47.[address] Avina study as per history Edema of l ower extremity 636959844 R60.0 No pitting edema seen today, will get a referral to cardiology , will order US tiffani LE venous and arterial doppler US duplex venous 10/24/2023 : Dr Morton Hypothyroidism 83877792 E03.9 US thyroid 11/29/2023 Pain of le ft ankle joint 6998582913 1590104 M25.572 Dr Kaur 03/05/2024 : Treated with tall walking bootDr Terrell 04/09/2024 EMG 05/07/2024 Needs to see podiatry, referral given 07/03/2024 Dysphonia 93451985 R49.9 OV 07/03/2024 : States that she has had hoarseness of her voice for 'many months' now, no neck pain, will refer to ENT [id number] Lefty Terrell DPM [facility] [place] [address] [place] [address] 07/05/2024 14:25:44 07/06/2024 13:43:47 Left Achilles tendinitis 1286872723 27982 M76.62 stretching exercises reviewed and dispensedR ice therapyNo strenuous activityFo llow-up in 4 weeks if not improved will send to physical therapy 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 6778302404 9108 G57.32 continue at-home physical therapyexe rcises reviewedco ntinue supportive shoe greg an appointmen t with Neurology- [facility] Concerns Section Related Observation LastModified by Organization Detai ls LastModified Time None Recorded Concern Status LastModified by Organization Details LastModified Time None Recorded Advance Directives Directive None Recorded Payers Encounter Date Sequence Insurance Name Policy Number Policy Moody Covered Member ID Moody Member ID Guarantor Name 04/09/2024 1 [employer] [place] ON [place] AFTER 2020 (MEDICAID REPLACEMENT - HMO) Raciel No [id number] Raciel No 04/10/2024 1 [employer] [place]ICA[place]PLAC[place] - HMO) Raciel No [id number] Raciel No 07/03/2024 1 [employer] [place] 2020 [place]ICA[place]PLAC[place] - HMO) Raciel No [id number] Raciel No 07/03/2024 1 [employer] [place]PLAC[place] - HMO) Raciel No [id number] Raciel No 07/05/2024 1 [employer] [place]AC[place] - [place]MO) Raciel No [id number] Raciel No Notes Date Note Type Note Provider Name and Address Organization Details Recorded Time 04/09/2024 text/html . Patient is a 59-year-old female who returns the office for follow-up on testing. Patient states she is concerned about a rash that she developed on her lower ankle area. Patient denies any infection. Patient states that the area of redness is not painful but she is concerned about the development she does not remember it being present. Patient has chronic venous insufficiency of lower extremity to which she has had previous surgery. This is likely dermatitis secondary to her peripheral vascular disease we will obtain lower arterial ultrasounds. Patient states she still has ankle pain MRI was denied by her insurance which would of help to detail a inflammatory soft tissue or ligamentous issues. Patient states her pain has improved we will send her to physical therapy follow-up. Lefty Terrell DPM [address] [facility], [facility] [address], [place], [address], [place] - [facility] [employer] 04/14/2024 13:38:59 04/10/2024 text/html Primary care/Ref erring provider: Shelton Glasgow MD; Kd Morton MD Patient is here to go over her shortness of breath evaluation/management. Initial development of shortness of breath: uration of shortness of breath: 1 yearCondition of shortness of breath: stableTiming of shortness of breath: noneFrequency: up to 3 times a dayLimits activities: yesAggravating factors: walkingAlleviating factors: rest Modified [employer] [place] (mMRC) Dyspnea Scale - Grade 2Grade 0 I only get breathless with strenuous exercise .Grade 1 I get short of breath when hurrying on the level or walking up a slight hill .Grade 2 I walk slower than people of the same age on the level because of breathlessness or have to stop for breath when walking at my own pace on the level .Grade 3 I stop for breath after walking about 100 yards or after a few minutes on the level .Grade 4 I am too breathless to leave the house or I am breathless when dressing . Treatment history: Albuterol HFA as needed since 04/2023 Other symptoms:Drooling: noDysarthria: noNeck pain: noOdynophagia: noDysphagia: noWeak mastication: noFacial weakness: noNasal speech: noProtruding tongue: noProductive cough: whiteWheezing: yesChest tightness: yesOrthopnea: noFrequent throat clearing or swallowing: noPalpitations: noHeartburn: noEdema: yes Environmental exposures:Nicotine smoke: 2 ppd 1995-present = 56 pack yearsPaint: noDye: noDust mites: yesMold: noDamp basement: noWood burning stove: yes until 1986Animal dander: dogsCockroaches: noPollen: yesArsenic: noAsbestos: noBeryllium: noCadmium: noChromium: noCoal smoke: noDiesel fumes: noNickel: noSilica: noSoot: no During the [facility] diagnostic sleep study 02/28/24, sleep onset = 16.5 minutes, REM onset = 282.5 minutes, AHI = 2, REM AHI = 9. PLMI = 12 and she is here to go over her lab workup. At home, the patient sleeps from 12 am to 8 am and wakes up without an alarm. Snoring: heavy, since .Snorting: noChoking: noCoughing: yesGasping: noGagging: noSighing: noWitnessed apnea: yesTwitching or jerking of leg(s), arm(s), body, head: yesTeeth grinding: yesTeeth clenching: yesSleeptalking: yesSleepwalking: noSleep crying: yesBedwetting: noTongue/lip/gum/cheek biting: noSleeping with open mouth: yesSleep paralysis: noHypnagogic hallucinations: noHypnopompic hallucinations: noVivid dreams: yesDifficulty with sleep onset: yesDifficulty with sleep maintenance: yesSleep interruptions: thoughtsPatient wakes up with: fatigue, xerostomia, sore throat, hoarse voice, headaches, jaw pain, disorientation, cognitive impairment, mobility impairment, dexterity impairmentDaytime cataplexy: noMorning hypersomnolence: noAfternoon hypersomnolence: yesCaffeine sources in diet: coffee 3.5 cups per day Associated medical and psychiatric conditions:Congestive heart failure: noCoronary artery disease: noMyocardial infarction: noHypertension: noStroke: noBronchial asthma: noChronic obstructive pulmonary disease: noDepression: yesBipolar disorder: noAnxiety: yesPanic disorder: noPosttraumatic stress disorder: noAttention deficit and hyperactivity disorder: noObsessive Compulsive disorder: noSchizophrenia: noSchizoaffective disorder: noPersonality disorder: noChronic analgesic use: noChronic sedative/hypnotic use: no EPWORTH SLEEPINESS SCALE (ESS) CHANCE OF DOZING SCORE0 = would never doze1 = slight chance of dozing2 = moderate chance of dozing3 = high chance of dozing SITUATION AND CHANCE OF DOZINGSitting and reading - 3Watching television - 3Sitting inactive in a public place (e.g. a theater or meeting) - 2As a passenger in a car for an hour without a break - 3Lying down to rest in the afternoon when circumstances permit - 3Sitting and talking to someone - 1Sitting quietly after lunch without alcohol - 3In a car, while stopped for a few minutes in the traffic - 3TOTAL SCORE 21Subjectively, patient has a high chance of dozing. Jenny Hardin MD [address] [place] [address], [phone], [facility] [employer] 04/10/2024 15:18:40 07/03/2024 text/html Primary care/Ref erring provider: Shelton Glasgow MD; Kd Morton MD Patient is here to go over her shortness of breath evaluation/management. Initial development of shortness of breath: uration of shortness of breath: 2 yearsCondition of shortness of breath: improvedTiming of shortness of breath: noneFrequency: up to 2 times a dayLimits activities: yesAggravating factors: walkingAlleviating factors: rest Modified [employer] [place] (mMRC) Dyspnea Scale - Grade 2Grade 0 I only get breathless with strenuous exercise .Grade 1 I get short of breath when hurrying on the level or walking up a slight hill .Grade 2 I walk slower than people of the same age on the level because of breathlessness or have to stop for breath when walking at my own pace on the level .Grade 3 I stop for breath after walking about 100 yards or after a few minutes on the level .Grade 4 I am too breathless to leave the house or I am breathless when dressing . Treatment history: Albuterol HFA as needed since 04/2023 Other symptoms:Drooling: noDysarthria: noNeck pain: noOdynophagia: noDysphagia: noWeak mastication: noFacial weakness: noNasal speech: noProtruding tongue: noProductive cough: whiteWheezing: yesChest tightness: yesOrthopnea: noFrequent throat clearing or swallowing: noPalpitations: noHeartburn: noEdema: yes Environmental exposures:Nicotine smoke: 2 ppd 1995-present = 56 pack yearsPaint: noDye: noDust mites: yesMold: noDamp basement: noWood burning stove: yes until 1986Animal dander: dogsCockroaches: noPollen: yesArsenic: noAsbestos: noBeryllium: noCadmium: noChromium: noCoal smoke: noDiesel fumes: noNickel: noSilica: noSoot: no During the [facility] diagnostic sleep study 02/28/24, sleep onset = 16.5 minutes, REM onset = 282.5 minutes, AHI = 2, REM AHI = 9. PLMI = 12 and she is on iron supplements. At home, the patient sleeps from 12 am to 8 am and wakes up without an alarm. Snoring: heavy, since .Snorting: noChoking: noCoughing: yesGasping: noGagging: noSighing: noWitnessed apnea: yesTwitching or jerking of leg(s), arm(s), body, head: yesTeeth grinding: yesTeeth clenching: yesSleeptalking: yesSleepwalking: noSleep crying: yesBedwetting: noTongue/lip/gum/cheek biting: noSleeping with open mouth: yesSleep paralysis: noHypnagogic hallucinations: noHypnopompic hallucinations: noVivid dreams: yesDifficulty with sleep onset: yesDifficulty with sleep maintenance: yesSleep interruptions: thoughtsPatient wakes up with: fatigue, xerostomia, sore throat, hoarse voice, headaches, jaw pain, disorientation, cognitive impairment, mobility impairment, dexterity impairmentDaytime cataplexy: noMorning hypersomnolence: noAfternoon hypersomnolence: yesCaffeine sources in diet: coffee 3.5 cups per day Associated medical and psychiatric conditions:Congestive heart failure: noCoronary artery disease: noMyocardial infarction: noHypertension: noStroke: noBronchial asthma: noChronic obstructive pulmonary disease: noDepression: yesBipolar disorder: noAnxiety: yesPanic disorder: noPosttraumatic stress disorder: noAttention deficit and hyperactivity disorder: noObsessive Compulsive disorder: noSchizophrenia: noSchizoaffective disorder: noPersonality disorder: noChronic analgesic use: noChronic sedative/hypnotic use: no EPWORTH SLEEPINESS SCALE (ESS) CHANCE OF DOZING SCORE0 = would never doze1 = slight chance of dozing2 = moderate chance of dozing3 = high chance of dozing SITUATION AND CHANCE OF DOZINGSitting and reading - 3Watching television - 3Sitting inactive in a public place (e.g. a theater or meeting) - 3As a passenger in a car for an hour without a break - 3Lying down to rest in the afternoon when circumstances permit - 3Sitting and talking to someone - 2Sitting quietly after lunch without alcohol - 3In a car, while stopped for a few minutes in the traffic - 0TOTAL SCORE 20Subjectively, patient has a high chance of dozing. Jenny Hardin MD [address] [place] [address], [id number], [facility] [employer] [facility] 07/03/2024 17:49:17 07/03/2024 text/html OV 10/12/2023:He re to establish care Prior PCP Dr Juan C Sanchez Present Hx:GERDHTNUICOPDCADDep ressionPalpitations Here to discuss above, she states that she did see the PA for Juan C Sanchez and was told to get the labs, she states that she has noted some tiffani LE edema, denies any chest pain, SOB, LOVETT, presyncope, syncope, orthopnea or PND, she has seen Dr Morton her store lead and has an apt coming up OV 02/27/2024: Here for her f/u apt, she has no new labs, she states that she did have an ankle strain while she was in [place] and did have an x-ray that was negative, but still has pain and swelling OV 07/03/2024: Here for her f/u apt, she states that she did see podiatry and pain management but has not been contacted about the results, states that the wireworker Dr Terrell told her he would not see her as he has decided not to take her insuranceShe still c/o fatigue, states that she has seen the new pulmonary MD in [facility] and is now getting more testing done for her fatigueShe has not yet done her labs Shelton Glasgow MD [address] [place] [address] [place], [facility] [address], [place], [address], [facility] [employer] [facility] 07/03/2024 17:37:46 07/05/2024 text/html . Patient is a 59-year-old female who returns the office for follow-up on left lower leg pain. Patient states that she underwent the nerve conduction study she was found to have peroneal neuropathy which is mild she still has good muscle strength at the level of the ankle and is able to completely dorsiflex her ankle. Patient does have some mild weakness but overall it is able to function. Patient states that she has random shooting pains in her left lower leg. I did recommend that she follow-up with Neurology which she states she has an upcoming appointment in August she states that she had a recent MRI on her cervical spine which is significant for spinal stenosis. Patient denies any other complaints. Lefty Terrell DPM [address] [facility] [address], [place], [address], [facility] [employer] [facility] 07/05/2024 15:56:07 OBGyn Episode No OBEpisode recorded.
--- OUTSIDE RECORDS SUMMARY | 2024-07-24 05:02 | XMS_ITS | CONTINUITY OF CARE DOCUMENT ---
Author Name alonso gupta Address Unknown Organization [facility] Address [address] [place] [address] Phone [phone] Care Team Providers Care Antenna Machine Operator Name Role Phone Rajesh GUADARRAMA, Praful Owen Unavailable TANIYA GUADARRAMA, KONSTANTIN Unavailable [phone] MINERVA GUADARRAMA, SHELTON Unavailable PROBLEMS Condition Status Date Provider Notes Palpitations active Praful Mena MD Personal history of COVID-19 active Praful Mena MD Snoring active Praful Mena MD Tobacco abuse active Praful Mena MD Cardiomegaly active Praful Mena MD COPD active Praful Mena MD Varicose veins active Praful Mena MD Leg pain active Sergei Rueda MD ENCOUNTERS Date Type Provider Location Encounter Diag nosis - In-person encounter Office Visit Sergei Rueda MD [place] Leg pain - In-person encounter Office Visit Praful Mena MD [place] PalpitationsPersonal history of COVID-19SnoringTobacco abuseCardiomegalyCOPDVaricose veins VITAL SIGNS Date Observation Value Provider Body Mass Index (Ratio) 33.85 kg/m2 Francisco Rueda MD respiratory rate E&M 18 /min Aleja Peterson weight E&M 197.2 [lb_av] Aleja Juni height E&M 64 [in_i] Aleja Alfredo Body Mass Index (Ratio) 31.07 kg/m2 Kenna Mena MD blood pressure, diastolic -1 mm[Hg] Li n[employer]Logic blood pressure, systolic 120 mm[Hg] Clare kLogjosé luis blood pressure, diastolic 84 mm[Hg] Oneil Maldonado blood pressure, systolic 120 mm[Hg] She anson Maldonado pulse rate 65 /min Blanca Maldonado oxygen saturation, oximetry 97 % Blanca Maldonado respiratory rate E&M 20 /min Blanca Maldonado blood pressure, cuff size regular Oneil Maldonado height E&M 64 [in_i] Blanca Maldonado weight E&M 181 [lb_av] Blanca Maldonado ALLERGIES Allergy Name Onset Date Reaction Criticality Status ROXICET High Criticality active IMDUR High Criticality active HISTORY OF MEDICATION USE Medication Status Instructions Dates Provider Indications Com ments duloxetine 60 mg capsule,delayed release(DR/EC) active Take 1 capsule by mouth once a day Aleja Alfredo aspirin 81 mg tablet,delayed release (DR/EC) active Take tablet by mouth once a day Aleja Alfredo atorvastatin 40 mg tablet active 1 tablet by mouth once a day Aleja Alfredo nicotine (polacrilex) 4 mg gum active CHEW 1 PIECE BY MOUTH DIRECTED. #100 PIECES/30 DAYS 6 [place] nicotine (polacrilex) 4 mg gum completed Chew 1 piece in mouth as directed 9 - 6 SOCIAL HISTORY Date Observation Value Provider smoking history, total pack/day 3 pkg a d ay Sergei Rueda MD cigarette use yes Sergei Rueda MD smoking status Current every day smoker R jennifer Rueda MD smoking history, total pack/day 3 pkg a d ay Blanca Maldonado cigarette use yes Blanca Maldonado smoking status Current every day smoker S jayson Maldonado INSURANCE PROVIDERS Payer name Policy type / Coverage type [employer]ady red alliance party ID [employer]ETNA [facility] Medicaid [id number] ADVANCE DIRECTIVES Name Date DISCUSSED - NO DECISION MADE TREATMENT PLAN Date Name Performer [id number],S, L [place] cancer screening recommended 3 ppd 30 years T he Patient was reencouraged to stop smoking. Praful Mena MD [id number],C, D evolped Cardiomegaly per CT scan. C heck home sleep study Praful Mena MD [id number],C,T here is an 8 mm left lower lobe noncalcified pulmonarynodule (image 17, s eries 201). No consolidative infiltrates, pneumothorax, pleuraleffusions. T here are patchyground-glass opacities throughout both lungs, greater in the l [place] bases. There is paraseptalemphysema, greatest in the upper lobes. No s uspicious mediastinal or axillary adenopathy. The heart is enlarged. There a recoronaryarterycalcifications. There is borderline ectasia ofthe c entral pulmonary arteries. No thoracic aotic aneurysm. There is b orderline diffuse fattydensityof the liver. There is mild thoracic d egenerative disc disease. I MPRESSION: 1 . 8 mm left lower lobe noncalcified pulmonary nodule. 2 . Paraseptal emphysema. 3 . Cardiomegalyand coronaryarterydisease. 4 . Patchyground-glass opacities in both lungs, greater in the lung bases. T his appearance may be due to chronic interstitial lung disease, atypical p neumonia, or atypical CHF. Consider pulmonology consultation if not already o btained. L az[place]-RADS 4A. Suspicious. Recommend follow-up CT scan of the chest in 3 m [facility] versus PET/CT follow-up. C reated and electronically signed by: Eleni Patel MD S igned Date: 12/17/2022 1:13 PM (CT) C HECK ECHO Praful Mena MD [id number],C, P rior venous vein stripping 20 years ago. Praful Mena MD [id number],S, N eeds to cut back on smoking. E mphysema, smokes 3 PPD 30+ years. Praful Mena MD Cardiology Sergei Rueda MD Cardiology Sergei Rueda MD Cardiology Sergei Rueda MD Cardiology:Venous do ppler normal N ormal pulses on exam Sergei Rueda MD Cardiology: L [place] cancer screening recommended 3 ppd 30 years T he Patient was reencouraged to stop smoking. Praful Mena MD Cardiology: D evolped Cardiomegaly per CT [facility]. [facility] Praful Mena MD Cardiology:There is an 8 mm left lower lobe noncalcified pulmonarynodule (image 17, s eries 201). No consolidative infiltrates, pneumothorax, pleuraleffusions. T here are patchyground-glass opacities throughout both lungs, greater in the l [place] bases. There is paraseptalemphysema, greatest in the upper lobes. No s uspicious mediastinal or axillary adenopathy. The heart is enlarged. There a recoronaryarterycalcifications. There is borderline ectasia ofthe c entral pulmonary arteries. No thoracic aotic aneurysm. There is b orderline diffuse fattydensityof the liver. There is mild thoracic d egenerative disc disease. I MPRESSION: 1 . 8 mm left lower lobe noncalcified pulmonary nodule. 2 . Paraseptal emphysema. 3 . Cardiomegalyand coronaryarterydisease. 4 . Patchyground-glass opacities in both lungs, greater in the lung bases. T his appearance may be due to chronic interstitial lung disease, atypical p neumonia, or atypical CHF. Consider pulmonology consultation if not already o btained. L azalea-RADS 4A. Suspicious. Recommend follow-up CT scan of the chest in 3 m onths versus PET/CT follow-up. C reated and electronically signed by: Dash Patel MD S igned Date: 12/17/2022 1:13 PM (CT) C HECK ECHO Praful Mena MD Cardiology: P rior venous vein stripping 20 years ago. Praful Mena MD Cardiology: N eeds to cut back on smoking. E mphysema, smokes 3 PPD 30+ years. Praful Mena MD Date Name CBC (INCLUDES DIFF/P LT) TSH, free T4, total T3 HEMOGLOBIN A1c LIPID PANEL PROBNP, N TERMINAL COMPREHENSIVE METABO LIC PANEL, W/EGFR Sleep Study Home Holter Monitor 48 hr Complete Echo 6 minute walk test Ambulatory Oximetry DLCO - 69631 FRC - 30264 FVC - 05038
[2024-07-24 05:03] VITALS: BP 135/75; PULSE 78; RESP 16; TEMP 36.3; O2SAT 95
[2024-07-24 07:45] VITALS: BP 107/70; PULSE 82; RESP 16; TEMP 36.3; O2SAT 96
--- NOTE | 2024-07-24 10:29 | ECG_ITS ---
Test Date: 2024-07-24 11:18:10 Measurements Intervals [place] Rate: 79 P: 65 MA: 148 QRS: 6 QRSD: 85 T: 32 QT: 391 QTc: 450 Interpretive Statements SINUS RHYTHM NORMAL ECG No previous ECG available for comparison Electronically Signed On 07-24-2024 11:53:25 LABORATORY ANIMAL FACILITY SUPERVISOR by Uvaldo Nelson D.O.
--- NOTE | 2024-07-24 10:30 | ED_ITS ---
HPI - General Adult General Chief complaint: Unspecified Stated complaint: something is going on in my head Time Seen by Provider: 07/24/24 10:18 History of Present Illness HPI narrative: Stopped her antidepressants 1wk ago; now feels bad, nausea, tingling to her entire head. got covid 2yrs ago and now constantly feels fatigue and headaches. Also having balance problems for years since she had a fall. Multiple sick contacts. Having viral symptoms with some chest tightness; had clean cath 3mo ago. Related Data Allergies Allergy/AdvReac Type Severity Reaction Status Date / Time isosorbide Allergy Unknown Verified 07/24/24 10:25 oxycodone (From Roxicet) Allergy Unknown Verified 07/24/24 10:25 Review of Systems Review of Systems: All systems reviewed & are unremarkable except as noted in HPI and below Exam Narrative: EXAMINATION OF ORGAN SYSTEMS/BODY AREAS: Constitutional: Vital signs per nursing GENERAL:[No acute distress, non-toxic appearing.] HEAD: Normal with no signs of head trauma. EYES: EOMI, conjunctiva normal ENT: Hearing grossly intact LUNGS: Nonlabored breathing. HEART: [Regular rate and rhythm] ABD: [Soft], [nontender to palpation] EXT: Normal range of motion SKIN: [No rashes or lesions.] NEURO: [Alert and oriented x 3. No gross focal sensory or strength deficits.] PSYCH: Normal affect Course Vital Signs Vital signs: Vital Signs Temperature 97.3 F L 07/24/24 05:03 Pulse Rate 78 07/24/24 05:03 Respiratory Rate 16 07/24/24 05:03 Blood Pressure 135/75 07/24/24 05:03 Pulse Oximetry 95 07/24/24 05:03 Oxygen Delivery Room Air 07/24/24 05:03 Temperature 97.3 F L 07/24/24 07:45 Pulse Rate 82 07/24/24 07:45 Respiratory Rate 16 07/24/24 07:45 Blood Pressure 107/70 07/24/24 07:45 Pulse Oximetry 96 07/24/24 07:45 Oxygen Delivery Room Air 07/24/24 05:03 Medical Decision Making [facility] Narrative Medical decision making narrative: Patient presents chronic symptoms including chronic fatigue, headache, but recently has been having more nausea vomiting since she quit taking her duloxetine 1 week ago. She has no interest in restarting any of these medications. I do highly suspect that her new symptoms are as a result of her stopping the duloxetine, however she has no interest now in restarting and she is otherwise well-appearing here with normal vital signs. My also as negative. I will give her medication for nausea and headache. I discussed with the patient that if she needs workup for her chronic headache and dizziness for years, that she would need to talk to her PCP about ordering an outpatient MRI since I cannot arrange this in the emergency room. Patient agreeable to this plan. I did obtain an EKG here, shows normal sinus rhythm, rate 79, AR 148, QTC 450, normal axis, no signs of acute ischemia or arrhythmia on my independent interpretation. Chest x-ray clear without acute abnormality, does appear consistent with chronic interstitial lung disease which she is already diagnosed with from COVID. Return precautions discussed. I do feel she is stable for discharge at this time, shows normal cardiopulmonary and neurologic exam. Vital Signs Vital Signs: Vital Signs Temperature 97.3 F L 07/24/24 05:03 Pulse Rate 78 07/24/24 05:03 Respiratory Rate 16 07/24/24 05:03 Blood Pressure 135/75 07/24/24 05:03 Pulse Oximetry 95 07/24/24 05:03 Oxygen Delivery Room Air 07/24/24 05:03 Temperature 97.3 F L 07/24/24 07:45 Pulse Rate 82 07/24/24 07:45 Respiratory Rate 16 07/24/24 07:45 Blood Pressure 107/70 07/24/24 07:45 Pulse Oximetry 96 07/24/24 07:45 Oxygen Delivery Room Air 07/24/24 05:03 Lab Data Labs: Lab Results 07/24/24 Range/Units 10:57 Influenza A (RT-PCR) Negative (Negative) Influenza B (RT-PCR) Negative (Negative) RSV (RT-PCR) Negative (Negative) SARS-CoV-2 RNA (RT-PCR) Negative (Negative) Discharge Plan Discharge Clinical Impression: Headache, Chronic lung disease Patient Disposition: Home, Self-Care Condition: Stable Instructions: Acute Headache (ED) Additional Instructions: Please take the medications as prescribed, please follow-up with your doctor for any further evaluation including MRI. You can always return to the ER for any further issues Patient Language: Eritrean Prescriptions: New ondansetron 4 mg tablet,disintegrating 4 mg PO Q8H PRN (Reason: nausea and vomiting) Qty: 10 0RF No Action methylprednisolone [Medrol (Dilip)] 4 mg tablets,dose pack See Rx Instructions .ROUTE .COMPLEX Qty: 21 0RF Rx Instructions: for 6 days Follow-up/Referrals: Myah,MD Catie [Primary Care Provider] -
[2024-07-24] MEDS: METOCLOPRAMIDE HCL INJ 10 MG/2 ML VIAL IM (11:19)
--- OUTSIDE RECORDS SUMMARY | 2024-07-24 11:30 | XMS_ITS | Clinical Summary ---
Author Organization [facility] [address] Address [address] [place] [address] Care Team Providers Care Sales Correspondent Name Role Phone Renato Rdz MD Primary Care Provider [phone] Allergies Active Allergy Reactions Criticality Noted Date [...] Type Department Care Team Description 07/12/2024 Telephone [facility] Gastroenterology at [address] [place] [address] Amalia Little LPN 07/04/2024 Orders Only [facility] Pulmonary [address] [place] [address] Medicine 8th [place] [address] [place] [address] Surjit Up MD 06/29/2024 3:00 PM BINGO CHECKER Office Visit [facility] [address] [place] [address] 8th [place] [address] [place] [address] Surjit Up MD Coronary artery calcification seen on CT scan (Primary Dx); Major depressive disorder in partial remission, unspecified whether recurrent (HCC); Tobacco abuse; Chronic fatigue; Other emphysema (HCC) 06/29/2024 1:30 PM BINGO CHECKER - 06/29/2024 11:59 PM BINGO CHECKER Hospital Encounter [facility] [address] [place] [address] Surjit Up MD ILD (interstitial lung disease) (CMS/HCC) (HCC) Discharge Disposition: Discharge to home or self care 06/29/2024 Orders Only [facility] Medicine 8th [place] [address] [place] [address] Surjit Up MD from Last 3 Months [...] Comments Blood Pressure 128/76 06/29/2024 2:30 PM BINGO CHECKER Pulse 78 06/29/2024 2:30 PM BINGO CHECKER Temperature 36.7 C (98.1 F) 06/29/2024 2:30 PM BINGO CHECKER Respiratory Rate 16 06/29/2024 2:30 PM BINGO CHECKER Oxygen Saturation 97% 06/29/2024 2:30 PM BINGO CHECKER Inhaled Oxygen Concentration - - Weight 85.5 kg (188 lb 6.4 oz) 06/29/2024 2:30 P M BINGO CHECKER Height 162.6 cm (5' 4 ) 06/29/2024 2:30 PM BINGO CHECKER Body Mass Index 32.34 06/29/2024 2:30 PM BINGO CHECKER Plan of Treatment Upcoming Encounters Date Type Department Care Team (Latest Contact Info) Description 02/26/2025 8:00 AM CDT Hospital Encounter [facility] [address] [place] [address] Connor Arias, [address] [facility] [address] [place] [address] 02/26/2025 8:00 AM CDT - 02/26/2025 8:40 AM CDT Surgery [address] [address] Connor Arias, [address] [facility] [address] [place] [address] ESOPHAGOGASTRODUODENOSCOPY Scheduled Procedures Name Priority Associated Diagnoses [...] 12/12/2023, 06/2023 Medical Devices Implanted Type Area Speeder Tender Device Identifier Shelf Expiration Date Model / Serial / Lot [employer] Device Closure Vascade Od5 Fr Femoral Artery [id number] - [id number] Implanted:Qty: 1 on 08/17/2023 by Kd Morton MD at [facility] 04/26/2025 [id number] / / [id number] Procedures Procedure Name Priority Date/Time Associated Diagnosis Comments CT CHEST WO CONTRAST Schedule Routine, Read Routine (OP Routine) 06/29/2024 2:05 PM BINGO CHECKER ILD (interstitial lung disease) (CMS/HCC) (HCC) HIGH RISK HPV DNA DETECTION WITH GENOTYPING Routine 12/12/2023 4:38 PM CDT Unspecified urinary incontinence from Last 3 Months or Most Recently Relevant to Health Maintenance Results * CT Chest WO Contrast (06/29/2024 2:05 PM BINGO CHECKER) Anatomical Region Laterality Modality Body N/A Computed Tomogra phy 06/29/2024 2:20 PM BINGO CHECKER Impressions 06/29/2024 2:20 PM BINGO CHECKER 1. Stable pulmonary nodules measuring up to 8mm. 1 year follow-up is recommended. 2. Paraseptal emphysema with mosaic attenuation of the lung parenchyma suggestive of small airway disease. Electronically signed by: Fabio Vargas M.D. Narrative 06/29/2024 2:20 PM BINGO CHECKER EXAMINATION: Computed tomography of the chest and [...] by: Fabio Vargas M.D. Surjit Kohler MD [facility] CT PROCEDURES F inal Result * High Risk HPV DNA Detection with Genotyping (Molecular component) (12/12/2023 4:38 PM CDT) Pathologist [facility] HPV HR 16 Not Detected Not Detected [facility] HPV HR 18 Not Detected Not Detected [facility] HPV HR Non 16/18 Not Detected Not Detected [facility] Comment: Interpretive Data Nucleic acid amplification for [...] this test have been verified by the [facility] Molecular Infectious Disease laboratory. Correlate with separately reported cytology results, as applicable. Interpretive data last revised 22 Endocervical 12/12/2023 4:38 PM CDT 12/13/2023 10:39 AM CDT Narrative [facility] - 12/13/2023 7:28 PM CDT Clinical history and diagnosis->last pap 11 years ago Testing type->Screening Last menstrual period (date if known)->- Menstrual status->Postmenopausal Isadora Aguirre MD LAB BODY FLUIDS AND STOOL S ORDERABLES Final Result [facility] Department [place] [address] [facility] from Last 3 Months or Most Recently Relevant to Health Maintenance Insurance [facility] [employer]ET[employer] [facility] [place] Advance Directives For more information, please contact: [phone] * Full Code (Latest Code Status on File) Date Activated Date Inactivated Comments 08/17/2023 9:09 AM 08/17/2023 3:52 PM Care Teams Sales Correspondent Relationship Specialty Start Date End Date Renato Rdz MD [facility] [place] [address] PCP - General Family Medicine 04/13/23
--- OUTSIDE RECORDS SUMMARY | 2024-07-24 11:30 | XMS_ITS | Referral Summary ---
Author Organization [facility] [place] [address] Address [address] [place] [address] Care Team Providers Care Pumping Station Engineer Name Role Phone Renato Rdz MD Primary Care Provider [phone] Encounters Date Type Department Care Team Description 07/12/2024 Telephone [facility] Gastroenterology at [address] [place] [address] Amalia Little LPN 07/04/2024 Orders Only [facility] [address] [facility] 8th [place] [address] [place] [address] Surjit Up MD 06/29/2024 Orders Only [facility] [address] [facility] 8th [place] [address] [place] [address] Surjit Up MD 06/29/2024 1:30 PM CLAY PLANT TREATER - 06/29/2024 11:59 PM [employer]LAY PLANT TREATER Hospital Encounter [facility] [address] [place] [address] Surjit Up MD ILD (interstitial lung disease) (CMS/HCC) (HCC) Discharge Disposition: Discharge to home or self care 06/29/2024 3:00 PM CLAY PLANT TREATER Office Visit [facility] [address] [facility] 8th [place] [address] [place] [address] Surjit Up MD Coronary artery calcification seen [...] Comments Blood Pressure 128/76 06/29/2024 2:30 PM CLAY PLANT TREATER Pulse 78 06/29/2024 2:30 PM CLAY PLANT TREATER Temperature 36.7 C (98.1 F) 06/29/2024 2:30 PM CLAY PLANT TREATER Respiratory Rate 16 06/29/2024 2:30 PM CLAY PLANT TREATER Oxygen Saturation 97% 06/29/2024 2:30 PM CLAY PLANT TREATER Inhaled Oxygen Concentration - - Weight 85.5 kg (188 lb 6.4 oz) 06/29/2024 2:30 P M CLAY PLANT TREATER Height 162.6 cm (5' 4 ) 06/29/2024 2:30 PM CLAY PLANT TREATER Body Mass Index 32.34 06/29/2024 2:30 PM CLAY PLANT TREATER Plan of Treatment Upcoming Encounters Date Type Department Care Team (Latest Contact Info) Description 02/26/2025 8:00 AM CDT Hospital Encounter [facility] [address] [place] [address] Connor Arias DO [address] [place] [address] [place] [address] 02/26/2025 8:00 AM CDT - 02/26/2025 8:40 AM CDT Surgery [facility] [address] [place] [address] Connor Arias, DO [address] [place] [address] ESOPHAGOGASTRODUODENOSCOPY Scheduled Procedures Name Priority Associated Diagnoses Date/Ti me ESOPHAGOGASTRODUODENOSCOPY Gastroesophageal reflux disease, unspecified whether esophagitis present Screening for colon cancer 02/26/2025 8:00 AM CDT COLONOSCOPY Gastroesophageal reflux disease, unspecified whether esophagitis present Screening for colon cancer 02/26/2025 8:00 AM CDT Medical Devices Implanted Type Area Shipper/Receiver Device Identifier Shelf Expiration Date Model / Serial / Lot [employer] Device Closure Vascade Od5 Fr Femoral Artery [id number] - [id number] Implanted:Qty: 1 on 08/17/2023 by Kd Morton MD at [facility] [employer] 04/26/2025 [id number] / / [id number] Procedures Procedure Name Priority Date/Time Associated Diagnosis Comments CT CHEST WO CONTRAST Schedule Routine, Read Routine (OP Routine) 06/29/2024 2:05 PM CLAY PLANT TREATER ILD (interstitial lung disease) (CMS/HCC) (HCC) HIGH RISK HPV DNA DETECTION WITH GENOTYPING Routine 12/12/2023 4:38 PM CDT Unspecified urinary incontinence from Last 3 Months or Most Recently Relevant to Health Maintenance Results * CT Chest WO Contrast (06/29/2024 2:05 PM CLAY PLANT TREATER) Anatomical Region Laterality Modality Body N/A Computed Tomogra phy 06/29/2024 2:20 PM CLAY PLANT TREATER Impressions 06/29/2024 2:20 PM CLAY PLANT TREATER 1. Stable pulmonary nodules measuring up to 8mm. 1 year follow-up is recommended. 2. Paraseptal emphysema with mosaic attenuation of the lung parenchyma suggestive of small airway disease. Electronically signed by: Fabio Vargas M.D. Narrative 06/29/2024 2:20 PM CLAY PLANT TREATER EXAMINATION: Computed tomography of the chest and [...] HPV HR 16 Not Detected Not Detected [facility] HPV HR 18 Not Detected Not Detected [facility] HPV HR Non 16/18 Not Detected Not Detected [facility] Comment: Interpretive Data Nucleic acid amplification [...] this test have been verified by the [facility] Molecular Infectious Disease laboratory. Correlate with separately reported cytology results, as applicable. Interpretive data last revised 22 Endocervical 12/12/2023 4:38 PM CDT 12/13/2023 10:39 AM CDT Narrative [facility] - 12/13/2023 7:28 PM CDT Clinical history and diagnosis->last pap 11 years ago Testing type->Screening Last menstrual period (date if known)->- Menstrual status->Postmenopausal Isadora Aguirre MD LAB BODY FLUIDS AND STOOL S ORDERABLES Final Result [facility] Department [place] [address] [facility] from Last 3 Months or Most Recently Relevant to Health Maintenance Insurance [facility] Advance Directives For more information, please contact: [phone] * Full Code (Latest Code Status on File) Date Activated Date Inactivated Comments 08/17/2023 9:09 AM 08/17/2023 3:52 PM Care Teams Pumping Station Engineer Relationship Specialty Start Date End Date Renato Rdz MD [address] [place] [address] [address] [place] [id number] PCP - General Family Medicine 04/13/23
--- OUTSIDE RECORDS SUMMARY | 2024-07-24 11:31 | XMS_ITS | CONTINUITY OF CARE DOCUMENT ---
Author Name alonso gupta Address Unknown Organization [facility] Address [address] [place] [address] Phone [phone] Care Team Providers Care Shoe Sticks Repairer Name Role Phone Rajesh GUADARRAMA, Praful Owen Unavailable TANIYA GUADARRAMA, KONSTANTIN Unavailable [phone] MINERVA GUADARRAMA, SHELTON Unavailable PROBLEMS Condition Status [...] In-person encounter Office Visit Sergei Rueda MD [facility] Leg pain - In-person encounter Office Visit Praful Mena MD [facility] PalpitationsPersonal history of COVID-19SnoringTobacco abuseCardiomegalyCOPDVaricose veins [...] Policy type / Coverage type Cady red green party ID [employer] [facility] Medicaid [id number] ADVANCE DIRECTIVES Name Date DISCUSSED - NO DECISION MADE TREATMENT PLAN Date Name Performer [id number],S, L [place] cancer screening recommended 3 ppd 30 years T he Patient was reencouraged to stop smoking. Praful Mena MD [id number],C, D evolped Cardiomegaly per CT scan. C [facility] home sleep study Praful Mena MD [id number],C,T here is an 8 mm left lower [...] consultation if not already o btained. L azlaea-RADS 4A. Suspicious. Recommend follow-up CT scan of the chest in 3 m [facility] versus PET/CT follow-up. C reated and electronically signed by: Eleni Patel MD S igned Date: 12/17/2022 1:13 PM (CT) C HECK ECHO Praful Mena MD [id number],C, P rior venous vein stripping 20 years ago. Praful Mena MD [id number],S, N eeds to cut back on smoking. [...] D evolped Cardiomegaly per CT scan. [facility] Praful Mena MD Cardiology:There [...] minute walk test Ambulatory Oximetry DLCO - 25464 FRC - 29161 FVC - 99535
[2024-07-24 11:45] LABS: Influenza A QL RT-PCR Negative (Negative); Influenza B QL RT-PCR Negative (Negative); RSV RNA, RT-PCR Negative (Negative); SARS-CoV-2 RNA PCR Negative (Negative)
[2024-07-24 12:55] VITALS: BP 110/72; PULSE 65; RESP 16; O2SAT 96
== END 2024-07-24 12:59 | disposition home or self-care (01) ==
PROVIDERS: Emergency Provider Emergency Medicine; PCP Internal Medicine
DX: R51.9 Headache, unspecified (principal); J98.4 Other disorders of lung; Z20.822 Contact with and (suspected) exposure to COVID-19
CPT/HCPCS: 71045; 87637; 93005; 96372; 99283; J2765